=== PATIENT | female | born 1965 | race Caucasian/White ===

== ENCOUNTER 2024-07-24 13:00 | Outpatient (RCR) | payer OTHER, SELFPAY ==
--- NOTE | 2024-07-24 14:06 | OPREHPOC ---
Outpatient Therapy Plan of Care This is a Multidisciplinary Plan of Care that may contain components documented by all disciplines (PT, OT, and ST.) PT Problem 1 PT Problem #1 Knowledge Deficit PT Goal 1 Goal / Goal Update Independent with HEP Target Visit 2 Progress Met PT Problem 2 PT Problem #2 Pain PT Goal 1 Goal / Goal Update Pt to report no more than 4/10 pain in the R knee with activity. Target Visit 12 PT Problem 3 PT Problem #3 Impaired Functional Mobility PT Goal 1 Goal / Goal Update Pt to progress to ambulating without AD. Pt to improve 6MWT distance to 1000ft with good mechanics for efficient community ambulation. Target Visit 12 PT Problem 4 PT Problem #4 Impaired Strength PT Goal 1 Goal / Goal Update Pt to improve R hip flexion strength to 4+/5. Pt to improve R hip flexion strength 4+/5 to be able to get up from a chair and ascend/descend stairs without difficulty. Target Visit 12 PT Problem 5 PT Problem #5 Impaired Range of Motion PT Goal 1 Goal / Goal Update Pt to improve R knee AROM to 0-120. Pt to improve R knee AROM to 0-120 to improve ability to ambulate, rise out of a chair, and navigate stairs. Target Visit 12
--- NOTE | 2024-07-24 14:28 | PTOPEVAL1 ---
Assessment and note entered by Meera Granger, PT Evaluation Information Assessment Status Evaluation Diagnosis R TKA ICD-10 Condition Codes (PT) Aftercare following joint replacement surgery Z47. 1 Onset 07/14/24 Subjective Information Pt reports undergoing R TKA on 07/14/24. States she's been doing some exercises at home since the surgery and is currently ambulating with a wheeled walker at all times. She reports a constant 6 or 7/10 pain in the R knee at all times and increases with activity. She has been using a CPM machine for 1.5 hours per day per her doctor. She sees her doctor via telehealth on the and then in person in August. Reported Pain Level Pain Score 7: Self Report Assessment PT Clinical Summary Mrs. Renee is a 59 year old female presenting to physical therapy for aftercare following R TKA on 07/14/24. She demonstrates impaired knee ROM, weakness, and functional decline leading to difficulty with getting up out of a chair and walking. She will benefit from skilled therapy intervention to address these deficits and return to prior level of function. Plan of Care Interventions Electrical Stimulation,Gait Training,Hot Pack/Cold Pack,Intermittent Compression Pump,Manual Therapy ,Neuro Re-education,Patient/Caregiver Education, Therapeutic Activities,Therapeutic Exercise,Self- Care/Home Management PT Services Indicated Yes Treatment Frequency and 2x/week for 12 visits Duration These treatments will address the objective and functional deficits as defined above. The patient will be advanced safely and appropriately in order for the patient to progress towards his/her prior level of function. Additional exercises will be introduced and as well as a comprehensive home exercise program upon discharge, if needed, ?to ensure carryover of functional gains achieved in the clinic. This treatment plan has been reviewed and agreement upon by the patient.
--- NOTE | 2024-08-17 16:35 | PCPTNOTE ---
I reviewed the License Pending Therapist's documentation and agree with the findings.
--- NOTE | 2024-09-08 13:48 | PTOPDC ---
Assessment and note entered by Katelynn Foster DPT Evaluation Information Assessment Status Discharge Diagnosis R TKA ICD-10 Condition Codes (PT) Aftercare following joint replacement surgery Z47. 1 Onset 07/14/24 Subjective Information Patient reports she has been released by for treatment of the R knee. She reports she has R hip bursitis and has a new order to treat hip. She reports the R knee is feeling good and she has been able to return to all prior activities. She reports compliance with HEP Reported Pain Level Pain Score 6,0: Self Report Assessment PT Clinical Summary Mrs. Renee attended 10 visit fo skilled PT s/p R TKA and made great progress. She has been able to return to all daily activities with use of R knee and is now limited by R hip. She met all goals and is compliance with HEP. She will be discharged at this time. Plan of Care PT Services Indicated Yes
== END 2024-09-08 14:14 | disposition home or self-care (01) ==
LOC: CHSPT 13:00
PROVIDERS: Visit Provider Orthopaedic Surgery
DX: Z96.651 Presence of right artificial knee joint (principal); Z47.1 Aftercare following joint replacement surgery
CPT/HCPCS: 97110; 97161; 97530

== ENCOUNTER 2024-07-28 15:03 | Outpatient (CLI) | payer OTHER, SELFPAY ==
--- NOTE | ~2024-07-28 | US_ITS ---
EXAMINATION: US venous doppler LE RT DATE: 07/28/2024 15:27 INDICATION: Right knee swelling TECHNIQUE: Grayscale ultrasound images without and with compression and Doppler ultrasound images of the right lower extremity veins were obtained. COMPARISON: None. FINDINGS: Noncompressible deep venous thrombosis in the paired right peroneal veins at the calf. The visualized portions of right common femoral vein, profunda (deep) femoral vein, femoral vein, popliteal vein, p osterior tibial veins, gastrocnemius vein and greater saphenous vein outflow are patent. IMPRESSION: 1. Iahvl-[id number]-vrdg deep venous thrombosis in the paired right peroneal veins. Reviewed, dictated and finalized at location A. ACE PUNCHER IMPRESSION: 1. Tsafo-amx-iugn deep venous thrombosis in the paired right peroneal veins.
--- OUTSIDE RECORDS SUMMARY | 2024-07-28 15:35 | XMS_ITS | Encounter Summary ---
Author Organization [facility] Healthcare Address [address] [place] [address] Care Team Providers Care End Packer Name Role Phone Jason Garber MD Primary Care Provider + [phone] Nathalie Munroe PT Unavailable Unavaila ble Raffi Mahan MD Unavailable [phone] Encounter Details Date Type Department Care Team (Late st Contact Info) Description 07/28/2024 Telephone [facility] Orthopedics and Sports Medicine [address] [facility] [address] [address] Sola Rashid PA [address] [place] [address] [address] [place] [address] Social History Tobacco Use Types Packs/Day Years Used Date Smoking Tobacco: Former Cigarettes 0.8 20 0 07/01/1981 - 07/01/2001 Smokeless Tobacco: Former Alcohol Use Standard Drinks/Week Comments Yes 0 (1 standard drink = 0.6 oz pur e alcohol) Occasionally Humiliation, Afraid, Rape, and Kick questionnair e Answer Date Recorded Within the last year, have y ou been afraid of your partner or ex-partner? No 10/15/2022 Within the last year, have y ou been humiliated or emotionally abused in other ways by your partner or ex-partner? No Within the last year, have y ou been kicked, hit, slapped, or otherwise physically hurt by your partner or ex-partner? No 10/15/2022 Within the last year, have y ou been raped or forced to have any kind of sexual activity by your partner or ex-partner? No 10/15/2022 Social Connection and Isolation Panel [NHANES] A nswer Date Recorded In a typical week, how many times do you talk on the phone with family, friends, or neighbors? Once a week 10/16/19 How often do you get togethe r with friends or relatives? Once a week 10/15/2022 How often do you attend chur ch or quaker services? 1 to 4 times per year 10/15/2022 Do you belong to any clubs o r organizations such as christian groups, unions, fraternal or athletic groups, or school groups? No 10/15/2022 How often do you attend meet ings of the clubs or organizations you belong to? Never 10/15/2022 Are you , , di vorced, , never , or living with a partner? 10/15/2022 AUDIT-C Answer Date Recorded Q1: How often do you have a drink containing alc ohol? Monthly or less 07/14/2024 Q2: How many drinks containi ng alcohol do you have on a typical day when you are drinking? 1 or 2 07/14/2024 Q3: How often do you have si x or more drinks on one occasion? Less than monthly 07/14/2024 Overall Financial Resource Strain (CARDIA) Answe r Date Recorded How hard is it for you to pa y for the very basics like food, housing, medical care, and heating? Not very hard 10/15/2022 PHQ-2 Answer Date Recorded PHQ-2 Total Score (If total score is 3 or more points, staff should administer the PHQ-9) 0 07/14/2024 [facility] of Occupat ional Health - Occupational Stress Questionnaire Answer Date Recorded Do you feel stress - tense, restless, nervous, or anxious, or unable to sleep at night because your mind is troubled all the time - these days? Rather much 10/15/2022 Exercise Vital Sign Answer Date Recorde d On average, how many days pe r week do you engage in moderate to strenuous exercise (like a brisk walk)? 3 days 10/15/2022 On average, how many minutes do you engage in exercise at this level? 30 min 10/15/2022 Hunger Vital Sign Answer Date Recorded Within the past 12 months, y ou worried that your food would run out before you got the money to buy more. Never true 10/16/19 23 Within the past 12 months, t he food you bought just didn't last and you didn't have money to get more. Never true 10/15/2022 PRAPARE - Transportation Answer Date Re corded In the past 12 months, has l ack of transportation kept you from medical appointments or from getting medications? No 09/29 In the past 12 months, has l ack of transportation kept you from meetings, work, or from getting things needed for daily living? No 10/15/2022 Housing Stability Vital Sign Answer Phillip e Recorded In the last 12 months, was t here a time when you were not able to pay the mortgage or rent on time? No 10/15/2022 In the last 12 months, how many places have you lived? 1 10/15/2022 In the last 12 months, was t here a time when you did not have a steady place to sleep or slept in a [place] health care facility (including now)? No 10/15/2022 Personal Safety Answer Date Recorded Have you ever been in or are you currently in a harmful physical or emotional relationship or is someone making you feel afraid or unsafe? 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 I was told to let the pt know she can head to [facility] and they will work her in. Pt informed and order faxed. OGRAPHY SUPERVISOR * Telephone Encounter - Sola Rashid PA - 07/28/2024 1:05 PM MAMMOGRAPHY SUPERVISOR Will you please order a stat doppler on right lower extremity for patient at [facility] today if possible? She is s/p right total knee arthroplasty 2 weeks ago. OGRAPHY SUPERVISOR documented in this encounter Plan of Treatment Not on file documented as of this encounter Visit Diagnoses Not on filedocumented in this encounter Care Teams End Packer Relationship Specialty Start Date End Date Jason Garber MD [address] [place] [address] PCP - General 09/28/16 Nathalie Munroe, PT Physical Therapist Physical Therapy 11/09/21 Raffi Mahan MD [address] [facility] [address] [place] [address] Surgeon Orthopedic Surgery 02/20/22 documented as of this encounter
--- OUTSIDE RECORDS SUMMARY | 2024-07-28 15:35 | XMS_ITS | Encounter Summary ---
Author Organization [facility] Healthcare Address [address] [place] [address] Care Team Providers Care Streetcar Conductor Name Role Phone Jason Garber MD Primary Care Provider + [phone] Nathalie Munroe PT Unavailable Unavaila Raffi Quiles MD Unavailable [phone] Reason for Referral * Diagnostic Imaging (Routine) - Pending Review Specialty Diagnoses / Procedures Referred By Contac t Referred To Contact Diagnoses Swelling of right knee joint S/P TKR (total knee replacement), right Procedures US VEIN DUPLEX LOWER EXTREMITY RIGHT LIMITED, UNILATERAL Sola Rashid PA [address] [place] [address] [address] [place] [address] Phone: tel: fax: External Order Referral ID Status Reason Start Date Expiration Date V isits Requested Visits Authorized [id number] Pending Review 07/28/2024 08/27/2025 1 1 D SPLATTER ANALYST Encounter Details Date Type Department Care Team (Late st Contact Info) Description 07/28/2024 Orders Only [facility] Orthopedics and Sports Medicine [address] [facility] [address] [place] [id number] Sola Rashid PA [address] [facility] [address] [place] [address] Swelling of right knee joint (Primary Dx); S/P TKR (total knee replacement), right Social History Tobacco Use Types Packs/Day Years [...] 10/15/2022 How often do you attend chur or tenriism services? 1 to 4 times per year 10/15/2022 Do you belong to any clubs o r organizations such as jewish groups, unions, fraternal or athletic groups, or [...] staff should administer the PHQ-9) 0 07/14/2024 [facility] - Occupational Stress Questionnaire Answer Date Recorded [...] place to sleep or slept in a halfway (including now)? No 10/15/2022 Personal Safety Answer Date Recorded Have you ever been in or are you currently in a harmful physical or emotional relationship or is someone making you feel afraid or unsafe? 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 Not on file Not on file documented as of this encounter Plan of Treatment Scheduled Orders Name Type Priority Associated Diagnoses Orde r Schedule US VEIN DUPLEX LOWER EXTREMITY RIGHT LIMITED, UNILATERAL Imaging Schedule ROBERT, Read ROBERT (Appt Today, Awaiting Results) Swelling of right knee joint S/P TKR (total knee replacement), right Expected: 07/28/2024, Expires: 07/28/2025 documented as of this encounter Visit Diagnoses Diagnosis Swelling of right knee joint- Primary Effusion of lower leg joint S/P TKR (total knee replacement), right documented in this encounter Care Teams Streetcar Conductor Relationship Specialty Start Date End Date Jason Garber MD [address] [place] [address] PCP - General 09/28/16 Nathalie Munroe, PT Physical Therapist Physical Therapy 11/09/21 Raffi Mahan MD [address] [facility] [address] Surgeon Orthopedic Surgery 02/20/22 documented as of this encounter
--- OUTSIDE RECORDS SUMMARY | 2024-07-28 15:35 | XMS_ITS | Encounter Summary ---
Author Organization [facility] Healthcare Address [address] [place] [address] Care Team Providers Care Conference Planner Name Role Phone Jason Garber MD Primary Care Provider + [phone] Nathalie Munroe PT Unavailable Unavaila Raffi Quiles MD Unavailable [phone] Encounter Details Date Type Department Care Team (Late st Contact Info) Description 07/23/2024 Orders Only [facility] Orthopedics and Sports Medicine [address] [place] [address] [address] [place] [address] John Jnoes PA [address] [place] [address] [address] [place] [address] Social History Tobacco Use Types Packs/Day Years [...] often do you attend chur ch or jain services? 1 to 4 times per year 10/15/2022 Do you belong to any clubs o r organizations such as temple groups, unions, fraternal or athletic groups, or [...] staff should administer the PHQ-9) 0 07/14/2024 [facility] of Occupat ional Health - Occupational Stress [...] place to sleep or slept in a prison (including now)? No 10/15/2022 Personal Safety Answer Date Recorded Have you ever been in or are you currently in a harmful physical or emotional relationship or is someone making you feel afraid or unsafe? 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 Not on file Not on file documented as of this encounter Ordered Prescriptions Prescription Sig Dispense Quantity Refills Last Filled Start Date End Date HYDROcodone-acetam inophen (NORCO) 5-325 mg per tabletIndications: Pain Take 1-2 tablets by mouth every 4 (four) hours as needed for pain 56 tablet 07/23/2024 documented in this encounter Plan of Treatment Not on file documented as of this encounter Visit Diagnoses Not on filedocumented in this encounter Discontinued Medications Medication Sig Discontinue Reason Start Date End Da te HYDROcodone-acetaminophe n (NORCO) 5-325 mg per tabletIndications:Pain Take 1-2 tablets by mouth every 4 (four) hours as needed for pain Reorder 07/15/2024 07/23/2024 documented as of this encounter Care Teams Conference Planner Relationship Specialty Start Date End Date Jason Garber MD [address] [place] [address] PCP - General 09/28/16 Nathalie Munroe, PT Physical Therapist Physical Therapy 11/09/21 Raffi Mahan MD [address] [facility] [address] Surgeon Orthopedic Surgery 02/20/22 documented as of this encounter
--- OUTSIDE RECORDS SUMMARY | 2024-07-28 15:35 | XMS_ITS | Encounter Summary ---
Author Organization [facility] Healthcare Address [address] [place] [address] Care Team Providers Care Implementation Advisor Name Role Phone Jason Garber MD Primary Care Provider + [phone] Nathalie Munroe PT Unavailable Unavaila ble Raffi Mahan MD Unavailable [phone] Encounter Details Date Type Department Care Team (Late st Contact Info) Description 07/28/2024 1:00 PM RIBBON SWEATBAND OPERATOR Telemedicine [facility] Group Orthopedics and Sports Medicine [address] [facility] [address] [place] [address] Sola Rashid PA [address] [place] [address] [address] [place] [address] S/P TKR (total knee replacement), right (Primary Dx); Orthopedic aftercare; Pain and swelling of right lower extremity Social History Tobacco Use Types Packs/Day Years [...] often do you attend chur ch or religion services? 1 to 4 times per year 10/15/2022 Do you belong to any clubs o r organizations such as buddhism groups, unions, fraternal or athletic groups, or [...] staff should administer the PHQ-9) 0 07/14/2024 [facility] of Occupat ional Health - Occupational Stress [...] place to sleep or slept in a assisted (including now)? No 10/15/2022 Personal Safety Answer Date Recorded Have you ever been in or are you currently in a harmful physical or emotional relationship or is someone making you feel afraid or unsafe? 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 Not on file Not on file documented as of this encounter Ordered Prescriptions Prescription Sig Dispense Quantity Refills Last Filled Start Date End Date oxyCODONE-acetamin ophen (PERCOCET) 5-325 mg per tabletIndications: Pain Take 1-2 tablets by mouth every 4 (four) hours as needed for pain 60 tablet 07/28/2024 cyclobenzaprine (FLEXERIL) 10 mg tablet Take 1 tablet (10 mg total) by mouth 3 (three) times a day as needed for muscle spasms for muscle spasms 30 tablet 1 07/28/2024 documented in this encounter Progress Notes * Sola Rashid PA - 07/28/2024 1:00 PM CST DOS: 07/14/24 Procedure:right total knee arthroplasty Pain control: How would you rate your pain: 01/07 What are you currently taking for pain: hydrocodone; not controlled with hydrocodone How many tabs: 2 How often: every 4 hours Are you in need of a refill: No Are you having any constipation related to taking pain medication: much improved and resolved now Do you have any NEW or other post operative sensations in your extremity for example numbness or tingling: No Incision check: Are there any concerns with the incision (redness, bleeding, drainage): No (If yes, send picture) Is there any excessive swelling in the lower leg or tenderness to the calf when touched: Yes . Willorder stat doppler [facility] Does the swelling in the lower leg fluctuate with activity: No Therapy check (TKA only): [facility]PD[facility]if PT is outside of [facility] facility)-once scanned, please send via medial inspection manager to the provider who will be performing 8 week visit Are you doing a home exercise program: Yes Have you started outpatient physical therapy: Yes If patient notes/mentions any barriers to physical therapy (cost of copay, transportation, etc.), please make note of what these are: n/a For total knee patients: Are you able to completely straighten the operative leg: Yes How far are you able to bend her knee back: unsure Are you able to sit in a chair normally: Yes Are you still using a walker/cane: Yes *If they have Home Health PT for first 2 weeks, make sure order for outpatient PT is placed. Medication check: *Confirm if they are still taking anticoagulant: (Aspirin, Eliquis, ect.) (4 weeks in TKA, 2 weeks in RTSA/TSA) Do you have any questions about any other medications: refill on cyclobenzaprine Review that the vitamin-C and vitamin-D and iron are prescribed for 30 days Any questions about any other medications: No Misc: Are you using compression stockings: Yes *Reminder, these are recommended for 4 weeks postoperatively for a total knee in 2 weeks postoperatively for a total shoulder. You will see a PA at your 8 week post op and we will also get an xray at that appointment ON SWEATBAND OPERATOR documented in this encounter Plan of Treatment Not on file documented as of this encounter Visit Diagnoses Diagnosis S/P TKR (total knee replacement), right- Primary Orthopedic aftercare Unspecified orthopedic aftercare Pain and swelling of right lower extremity documented in this encounter Discontinued Medications Medication Sig Discontinue Reason Start Date End Da te cyclobenzaprine (FLEXERIL) 10 mg tabletIndications:S/P spinal fusion Take 1 tablet (10 mg total) by mouth 3 (three) times a day as needed for muscle spasms for muscle spasms Reorder 07/03/2024 07/28/2024 documented as of this encounter Care Teams Implementation Advisor Relationship Specialty Start Date End Date Jason Garber MD [address] [place] [address] PCP - General 09/28/16 Nathalie Munroe, PT Physical Therapist Physical Therapy 11/09/21 Raffi Mahan MD [address] [facility] [address] [place] [address] Surgeon Orthopedic Surgery 02/20/22 documented as of this encounter
--- OUTSIDE RECORDS SUMMARY | 2024-07-28 15:36 | XMS_ITS | Encounter Summary ---
Author Organization [facility] Healthcare Address [address] [place] [address] Care Team Providers Care Exchange Consultant Name Role Phone Jason Garber MD Primary Care Provider [phone] Nathalie Munroe PT Unavailable Unavaila ble Raffi Mahan MD Unavailable [phone] Encounter Details Date Type Department Care Team (Late st Contact Info) Description 02/24/2024 Documentation Internal Medicine Geovany Díaz BS Social History Tobacco Use Types Packs/Day Years [...] you have a drink containing alc ohol? 2-4 times a month 02/20/2023 Q2: How many drinks containi ng alcohol do you have on a typical day when you are drinking? 3 or 4 02/20/2023 Q3: How often do you have si x or more drinks on one occasion? Less than monthly 02/20/2023 Overall Financial Resource Strain (CARDIA) Answe r Date Recorded How hard is it for you to pa y for the very basics like food, housing, medical care, and heating? Not very hard 10/15/2022 PHQ-2 Answer Date Recorded PHQ-2 Total Score (If total score is 3 or more points, staff should administer the PHQ-9) 1 01/28/2024 [facility] - Occupational Stress Questionnaire Answer Date Recorded [...] place to sleep or slept in a care home (including now)? No 10/15/2022 Personal Safety Answer Date Recorded Getting School Help Needed Not on file 06/11 Comments No Sex and Gender Information Value Date Recorded Sex Assigned at Not on file Legal Sex Female 11:31 AM WORK COUNSELOR Gender Identity Not on file Sexual Orientation Not on file Occupation Industry Job Start Date Job End Date [employer] Not on file Not on file Not on file documented as of this encounter Plan of Treatment Not on file documented as of this encounter Visit Diagnoses Not on filedocumented in this encounter Care Teams Exchange Consultant Relationship Specialty Start Date End Date Jason Garber MD [address] [place] [address] PCP - General 09/28/16 Nathalie Munroe, PT Physical Therapist Physical Therapy 11/09/21 Raffi Mahan MD [address] [facility] [place] [place] [address] Surgeon Orthopedic Surgery 02/20/22 documented as of this encounter
--- OUTSIDE RECORDS SUMMARY | 2024-07-28 15:36 | XMS_ITS | Clinical Summary ---
Author Organization [facility] Address [address] [place] [address] Care Team Providers Care Press Leader Name Role Phone Jason Garber MD Primary Care Provider [phone] Nathalie Munroe PT Unavailable Unavaila ble Raffi Mahan MD Unavailable [phone] Allergies No known active allergies Medications albuterol HFA (PROVENTIL HFA,VENTOLIN HFA,PROAIR HFA) 90 mcg/actuation inhalerIndicati ons:Bronchitis TAKE 2 PUFFS BY MOUTH EVERY 4 HOURS NEEDED FOR WHEEZE 8.5 each 1 023 Active telmisartan (MICARDIS) 40 mg tablet Take 1 tablet (40 mg total) by mouth daily 90 tablet 3 023 Active ergocalciferol (VITAMIN D) 50,000 unit capsule TAKE 1 CAPSULE BY MOUTH ONE TIME PER WEEK 4 capsule 5 024 Active hydroCHLOROthia zide (HYDRODIURIL) 25 mg tablet TAKE 1 TABLET (25 MG TOTAL) BY MOUTH DAILY. 30 tablet 6 024 Active acetaminophen (TYLENOL) 500 mg tablet TAKE 2 TABLETS (1,000 MG TOTAL) BY MOUTH EVERY 6 HOURS NEEDED FOR PAIN 120 tablet 024 Active metoprolol XL (TOPROL-XL) 25 mg extended release tabletIndicatio ns:Hypertension , essential TAKE 1 TABLET (25 MG TOTAL) BY MOUTH DAILY. 100 tablet 1 024 Active atorvastatin (LIPITOR) 20 mg tablet TAKE 1 TABLET BY MOUTH EVERY DAY 100 tablet 1 024 Active levothyroxine (SYNTHROID) 100 mcg tabletIndicatio ns:Hypothyroidi sm, unspecified type TAKE 1 TABLET BY MOUTH EVERY DAY 100 tablet 1 024 Active citalopram (CeleXA) 40 mg tabletIndicatio ns:Anxiety TAKE 1 TABLET BY MOUTH EVERY DAY 100 tablet 024 Active busPIRone (BUSPAR) 5 mg tablet TAKE 1 TABLET BY MOUTH THREE TIMES A DAY 90 tablet 11 024 Active ondansetron (ZOFRAN) 4 mg tablet TAKE 1 TABLET BY MOUTH EVERY 8 HOURS NEEDED FOR NAUSEA AND VOMITING 9 tablet 2 024 Active oxyBUTYnin XL (DITROPAN-XL) 5 mg 24 hr tabletIndicatio ns:Urinary incontinence, mixed TAKE 1 TABLET (5 MG TOTAL) BY MOUTH DAILY. 90 tablet 1 024 Active meloxicam (MOBIC) 15 mg tabletIndicatio ns:Left hip pain,Right hip pain,Greater trochanteric pain syndrome of both lower extremities,Tro chanteric bursitis of left hip,Tendinopath y of left gluteal region,Tendinop athy of right gluteus medius Take 1 tablet (15 mg total) by mouth daily 30 tablet 3 024 Active gabapentin (NEURONTIN) 300 mg capsuleIndicati ons:S/P spinal fusion TAKE 1 CAPSULE BY MOUTH TWICE A DAY 180 capsule 3 Active ascorbic acid (VITAMIN C) 500 mg tablet,chewable Take 1 tablet/chew tab (500 mg total) by mouth 2 (two) times a day 60 tablet/chew tab 025 2024 Active aspirin 81 mg enteric coated tablet Take 1 tablet (81 mg total) by mouth 2 (two) times a day 60 tablet 025 2024 Active ferrous sulfate 325 mg (65 mg of elemental iron) tabletIndicatio ns:Iron Deficiency Anemia Take 1 tablet (325 mg total) by mouth daily with breakfast 30 tablet 025 2024 Active senna-docusate (PERICOLACE) 8.6-50 mg Take 1-2 tablets daily prn for constipation 30 tablet 025 Active HYDROcodone-frieda taminophen (NORCO) 5-325 mg per tabletIndicatio ns:Pain Take 1-2 tablets by mouth every 4 (four) hours as needed for pain 56 tablet 025 Active buPROPion SR (WELLBUTRIN SR) 200 mg 12 hr tabletIndicatio ns:Anxiety TAKE 1 TABLET BY MOUTH EVERY DAY 90 tablet 1 025 Active cyclobenzaprine (FLEXERIL) 10 mg tablet Take 1 tablet (10 mg total) by mouth 3 (three) times a day as needed for muscle spasms for muscle spasms 30 tablet 1 025 Active oxyCODONE-aceta minophen (PERCOCET) 5-325 mg per tabletIndicatio ns:Pain Take 1-2 tablets by mouth every 4 (four) hours as needed for pain 60 tablet 025 Active busPIRone (BUSPAR) 5 mg tablet TAKE 1 TABLET BY MOUTH THREE TIMES A DAY 90 tablet 11 023 2023 Discontinued oxyBUTYnin XL (DITROPAN-XL) 5 mg 24 hr tabletIndicatio ns:Urinary incontinence, mixed TAKE 1 TABLET (5 MG TOTAL) BY MOUTH DAILY. 90 tablet 1 024 2023 Discontinued cyclobenzaprine (FLEXERIL) 10 mg tabletIndicatio ns:S/P spinal fusion Take 1 tablet (10 mg total) by mouth 3 (three) times a day as needed for muscle spasms for muscle spasms 30 tablet 1 024 2024 Discontinued(R eorder) gabapentin (NEURONTIN) 300 mg capsuleIndicati ons:S/P spinal fusion TAKE 1 CAPSULE BY MOUTH TWICE A DAY 180 capsule 3 024 2024 Discontinued(R eorder) buPROPion SR (WELLBUTRIN SR) 200 mg 12 hr tabletIndicatio ns:Anxiety TAKE 1 TABLET BY MOUTH EVERY DAY 30 tablet 5 024 2024 Discontinued ondansetron (ZOFRAN) 4 mg tablet Take 1 tablet (4 mg total) by mouth every 6 (six) hours 12 tablet 024 2024 Discontinued(T herapy completed) meloxicam (MOBIC) 15 mg tabletIndicatio ns:Left hip pain,Right hip pain,Greater trochanteric pain syndrome of both lower extremities,Tro chanteric bursitis of left hip,Tendinopath y of left gluteal region,Tendinop athy of right gluteus medius TAKE 1 TABLET BY MOUTH EVERY DAY WITH FOOD 30 tablet 024 2023 Discontinued(R eorder) semaglutide (Wegovy) 2.4 mg/0.75 mL auto-injector INJECT 0.75 ML (2.4 MG TOTAL) UNDER THE SKIN EVERY 7 DAYS 3 mL 2 024 2024 Discontinued(T herapy completed) ondansetron (ZOFRAN) 4 mg tablet Take 1 tablet (4 mg total) by mouth every 8 (eight) hours as needed for nausea or vomiting 20 tablet 024 2023 Discontinued Klor-Con M20 20 mEq CR tablet TAKE 1 TABLET BY MOUTH TWICE A DAY FOR 7 DAYS, THEN 1 TAB DAILY 37 tablet 2 024 2024 Discontinued(T herapy completed) cyclobenzaprine (FLEXERIL) 10 mg tabletIndicatio ns:S/P spinal fusion Take 1 tablet (10 mg total) by mouth 3 (three) times a day as needed for muscle spasms for muscle spasms 30 tablet 1 025 2024 Discontinued(R eorder) HYDROcodone-frieda taminophen (NORCO) 5-325 mg per tabletIndicatio ns:Pain Take 1-2 tablets by mouth every 4 (four) hours as needed for pain 56 tablet 025 2024 Discontinued(R eorder) Active Problems Problem Noted Date Diagnosed Date S/P TKR (total knee replacement), right 07/14/19 25 Primary osteoarthritis of right knee 07/05/2024 Hypokalemia 01/28/2024 Assessment & Plan (01/28/2024 10:21 AM CDT): Instructed to avoid intermittent fasting. Patient with diarrhea occurring intermittently for the past few weeks, increased in the past last 1 week. K=3.0. Will start kcl 10 meq daily and repeat labs in 2-4 weeks. Hypertension, essential 01/28/2024 Assessment & Plan (07/03/2024 10:56 AM POLITICAL AIDE): Blood pressure is very well controlled. Continue present management telmisartan, metoprolol and hydrochlorothiazide. Assessment & Plan (01/28/2024 10:36 AM CDT): Blood pressure is well controlled, continue present management with telmisartan 40 mg daily, hydrochlorothiazide 25 mg daily and metoprolol. Dizziness 01/28/2024 Assessment & Plan (01/28/2024 10:34 AM CDT): Lengthy discussion regarding dizziness as a result electrolyte disturbance hypoglycemia. Patient has been following intermittent fasting diet, walking out in the heat without eating. Symptoms of dizziness have occurred during her walks in the heat. Blood sugar today 70 in office. Explained to patient that she needs to eat several small meals frequently throughout the day. Will continue to monitor. If symptoms persist despite returning to normal diet can order Holter monitor. Essential tremor 11/22/2023 Assessment & Plan (11/22/2023 11:52 AM CDT): No evidence of tremor on exam. Patent report occasional hand tremor with intentional movement/activity. No tremor at rest, no head tremor, speech disturbance or change in gait. Bilateral hip pain 11/22/2023 Assessment & Plan (11/22/2023 12:02 PM CDT): Reviewed xray 2019 with moderate degenerative change and bone spurring noted on left hip. Patient has increased pain in bilateral hips, pain is not new but does not seem to have improved much following physical therapy. Check x-rays, further evaluation with ortho. May also benefit from injections. Weakness of both lower extremities 03/07/2023 Assessment & Plan (07/04/2023 12:25 PM POLITICAL AIDE): Improvement in gait and strength with physical therapy. Some increase in hip pain with exercises, discussed p.r.n. use of ibuprofen. Will continue to monitor. Assessment & Plan (03/07/2023 10:35 AM CDT): Encourage physical therapy, patient is agreeable. Referral placed today for physical therapy eval/treatment. S/P spinal fusion 02/19/2022 Assessment & Plan (07/03/2024 10:55 AM POLITICAL AIDE): Continues sparing use of gabapentin and Flexeril. Pain stable. Assessment & Plan (11/22/2023 11:54 AM CDT): Reviewed last eval with ortho spine, low back pain likely due to degenerative changes below fusion site. Patient was not a candidate to extend fusion to sacrum/ilium as her BMI is too high. Overall pain is unchanged and stable. No bowel or bladder disturbance or perianal numbness. Encouraged her to continue to work towards weight loss as well as continued home exercise program and exercises with physical therapy. Assessment & Plan (07/04/2023 12:25 PM POLITICAL AIDE): Patient is benefitting from physical therapy exercises, continues exercises at home as well. Would not be considered surgical candidate until BMI is less than 35, working hard towards weight loss. Assessment & Plan (03/07/2023 10:36 AM CDT): Encouraged gradual increase of activity. Start with walking 30 minutes daily. Gentle exercise twice weekly. CKD (chronic kidney disease) stage 3, GFR 30-59 ml/min 02/15/2022 Chronic, continuous use of opioids 02/15/2022 History of anemia 02/15/2022 Asthma 02/15/2022 History of PSVT (paroxysmal supraventricular tac hycardia) 02/15/2022 Closed fracture of first lum bar vertebra with delayed healing 01/31/2022 Overview (01/31/2022): Added automatically from request for surgery [id number] Pain, lumbar region 01/31/2022 Overview (01/31/2022): Added automatically from request for surgery [id number] Lumbar radiculopathy 01/31/2022 Overview (01/31/2022): Added automatically from request for surgery [id number] Spinal stenosis of lumbar region 01/31/2022 Overview (01/31/2022): Added automatically from request for surgery [id number] Class 2 obesity in adult 10/03/2021 Assessment & Plan (07/03/2024 10:57 AM POLITICAL AIDE): No longer taking Wegovy, we has been maintained. Continues working towards weight loss. Hopeful to increase walking following knee replacement. Assessment & Plan (01/28/2024 10:36 AM CDT): Discussed the importance of eating several small meals frequently throughout the day, avoid fasting. Discussed hypoglycemia with use of Wegovy. Will continue to monitor closely. Assessment & Plan (07/04/2023 12:24 PM POLITICAL AIDE): Doing very well with wegovy. Denies any medication side effects. Weight is down 20 lbs since 03/2023. Patient is watching diet closely and trying to increase exercise with walking. Continues working with PT. Reports some improvement in back pain. Assessment & Plan (10/03/2021 11:16 AM CDT): Limited exercise at current time d/t pain from lumbar compression fracture. Reviewed need to lose weight, reviewed health benefits. Reviewed recommendations for daily intake & activity 20-30 minutes/day. Discussed healthy diet and importance of regular physical activity. Electronic cigarette use 10/03/2021 Assessment & Plan (10/03/2021 11:17 AM CDT): Uses nicotine in e-cigarette. Precontemplative. Encouraged complete smoking cessation. Discussed different types of medications & [id number] aides to help with cessation. Closed compression fracture of body of L1 verteb ra 09/19/2021 Assessment & Plan (10/04/2021 7:38 PM CDT): Never received lidocaine patches from the ER. Resent the patches to her pharmacy. Reviewed that she should apply for 12 hours and remove for 12 hours. Using hydrocodone for more severe pain. Consistently using heating pad. Discussed PT as she continues to improve. Declined at this time but relates that she will call back in several weeks to get set up. Reviewed red flags. Assessment & Plan (09/19/2021 2:16 PM CDT): Sent home w/lidocaine 5% patch q12hr, naproxen 500mg bid, tylenol 1000mg tid prn & oxycodone 5mg tid prn. To machine pecan picker lidocaine patch. Aware to apply x12hrs & remove for 12 hrs. To use naproxen & tylenol for pain & oxycodone for more severe pain. [facility] ER paperwork given information for: Dr Wagner Maldonado (orthopedic surgery) at [facility] [phone]. Referral sent to Dr Mahan at [facility]: contact info given. Will call their office tomorrow. Urinary incontinence, mixed 09/19/2021 Assessment & Plan (09/19/2021 2:09 PM CDT): Oxybutynin daily refilled. Hypertension 08/10/2021 Hand pain, left 10/07/2020 Assessment & Plan (10/07/2020 8:41 AM CDT): L hand xr ordered. Will contact w/results once rec'd. Discussed referral to ortho pending results. Discussed icing to dorsum of L hand into wrist. Acute wrist pain, left 10/07/2020 Assessment & Plan (10/07/2020 8:41 AM CDT): L wrist xr ordered. Will contact w/results once rec'd. Discussed referral to ortho pending results. Discussed icing to dorsum of L hand into wrist. Primary osteoarthritis of both knees 08/09/2020 Assessment & Plan (07/03/2024 10:55 AM POLITICAL AIDE): Plans to have arthroscopy right knee with Dr. Multani on 07/14. No contraindications to upcoming surgery. Assessment & Plan (11/22/2023 11:57 AM CDT): Previous good response to injections with ortho, plans to schedule follow up. Again discussed benefits of weight loss. Mixed hyperlipidemia 07/26/2020 Assessment & Plan (07/03/2024 10:56 AM POLITICAL AIDE): Doing well with atorvastatin 20 mg daily, no changes made today. Assessment & Plan (07/04/2023 12:23 PM POLITICAL AIDE): Labs ordered today, continue atorvastatin 20 mg daily. Assessment & Plan (03/07/2023 10:43 AM CDT): Continues atorvastatin, fasting labs ordered today. Will continue to monitor Assessment & Plan (07/27/2020 8:11 PM POLITICAL AIDE): 07/26/20 BG=858 HDL=56 LT=758 NOF=979 TC/HDL=4.1 Copy of results given to Eunice De La Cruz. Reviewed results at time of appointment. Acute pain of left knee 07/26/2020 Assessment & Plan (07/27/2020 8:09 PM POLITICAL AIDE): Referral to [facility] for further eval. To continue NSAIDs & icing. Discussed bracing if needed d/t lateral laxity. Contact info for [facility] given to Mrs De La Cruz. SVT (supraventricular tachycardia) 06/27/2020 Major depressive disorder in partial remission 1 08/28/2019 Varicose veins of lower extremity with pain, rig ht 05/16/2018 Overview (05/16/2018): Added automatically from request for surgery [id number] Varicose veins of lower extr emities with complications, right 05/16/2018 Overview (05/16/2018): Added automatically from request for surgery [id number] Family hx of colon cancer 01/23/2018 Overview (01/23/2018): Added automatically from request for surgery [id number] Morbid obesity with BMI of 40.0-44.9, adult /03/2018 Assessment & Plan (11/22/2023 12:04 PM CDT): Encouraged patient to engage with a more formal weight loss program such as weight watchers as she would benefit from having additional support. Continue Wegovy weekly injections. Not a candidate for stimulant medication. Assessment & Plan (03/07/2023 10:37 AM CDT): Patient is motivated for weight loss. She is not seeing any improvement with use of Trulicity. Previously prescribed Wegovy, however medication was not available. Would like to try Wegovy again at this time, refilled. Discontinue Trulicity. Today we reviewed TDEE encouraged patient to use fitness tracking luis better understand current dietary habits. Stressed the need for overall high-protein and lower carb (see patient instructions). Assessment & Plan (07/26/2020 1:23 PM POLITICAL AIDE): Has lost 17# since 06/27/20 appt. Reviewed need to lose weight, reviewed health benefits. Reviewed recommendations for daily intake & activity 20-30 minutes/day. Discussed healthy diet and importance of regular physical activity. Anxiety 08/12/2015 Overview (10/04/2016): Anxiety Assessment & Plan (07/03/2024 10:57 AM POLITICAL AIDE): Reports moods are stable. No changes made today. Continue citalopram, bupropion and buspirone Assessment & Plan (11/22/2023 11:51 AM CDT): Increased stress related to with chronic health conditions and requiring frequent appointments. was on ventilator in Aug. Increased stress likely contributing to weight/inability to lose weight as she is eating/snacking more in the evenings. Recommend we increase buspirone to 10 mg tid 15 mg bid for easier dosing. Continue citalopram and bupropion, will continue to monitor. Assessment & Plan (07/25/2019 4:54 PM POLITICAL AIDE): Info for [facility] intensive OP program givenf or Mrs De La Cruz to give her . Stressed her safety (safe). Hydroxyzine 25mg tid prn anxiety. Reviewed med SE & scheduling. Discussed counseling. Uncertain if she will do that. To rtc/call if hydroxyzine not helpful. Irritable bowel syndrome 05/20/2012 Overview (10/05/2016): IBS (irritable bowel syndrome) Assessment & Plan (01/28/2024 10:33 AM CDT): Continue present management, avoid abrupt dietary changes and fat diets. Hypothyroidism 05/19/2012 Overview (10/05/2016): Hypothyroidism Assessment & Plan (07/03/2024 10:56 AM POLITICAL AIDE): Levothyroxine 100 mcg daily. Will check TSH/T4 and make changes as needed. Lab Results Component Value Date TSH 0.76 01/24/2024 TSH 0.51 03/07/2023 TSH 1.81 10/19/2022 Assessment & Plan (07/04/2023 12:23 PM POLITICAL AIDE): Levothyroxine 100 mcg daily. Will check TSH/T4 and make changes as needed. Lab Results Component Value Date TSH 0.51 03/07/2023 TSH 1.81 10/19/2022 TSH 2.24 06/11/2022 TSH 2.24 06/11/2022 Assessment & Plan (03/07/2023 10:42 AM CDT): Levothyroxine 100 mcg daily. Will check TSH/T4 and make changes as needed. Lab Results Component Value Date TSH 1.81 10/19/2022 TSH 2.24 06/11/2022 TSH 2.24 06/11/2022 Depression 07/01/2003 Overview (10/04/2016): Depression Resolved Problems Problem Noted Date Diagnosed Date Resolved Date Class 2 obesity due to exces s calories without serious comorbidity with body mass index (BMI) of 38.0 to 38.9 in adult 09/19/20212 Assessment & Plan (09/19/2021 2:07 PM CDT): Reviewed need to lose weight, reviewed health benefits. Reviewed recommendations for daily intake & activity 20-30 minutes/day. Discussed healthy diet and importance of regular physical activity. semaglutide 0.25mg SQ injection weekly. Aware that prior auth may be triggered. May/may not be approved. Class 2 obesity due to exces s calories without serious comorbidity with body mass index (BMI) of 37.0 to 37.9 in adult 10/07/2020 Assessment & Plan (10/07/2020 8:34 AM CDT): Reviewed need to lose weight, reviewed health benefits. Reviewed recommendations for daily intake & activity 20-30 minutes/day. Discussed healthy diet and importance of regular physical activity. BMI 35.0-35.9,adult 07/26/2020 10/08/19 21 Assessment & Plan (07/27/2020 8:10 PM POLITICAL AIDE): Has lost 17# since WADE. BMI has dropped nearly 3 points. Reviewed need to lose weight, reviewed health benefits. Reviewed recommendations for daily intake & activity 20-30 minutes/day. Discussed healthy diet and importance of regular physical activity. BMI 37.0-37.9, adult 07/25/2019 021 Assessment & Plan (07/25/2019 4:52 PM POLITICAL AIDE): Reviewed need to lose weight, reviewed health benefits. Reviewed recommendations for daily intake & activity 20-30 minutes/day. Discussed healthy diet and importance of regular physical activity. Tonsillitis 07/24/2019 10/07/2020 Assessment & Plan (07/25/2019 4:49 PM POLITICAL AIDE): augmentin 875/125mg po bid x 10 days sent. Aware to complete entire course of abx. Tylenol or ibuprofen for fever/pain Gargle with warm salt water (1tsp salt/1 cup water) Suck on ice chips, popsicles, cough drops, or throat lozenges May use warm salt water gargles for pain or otc chloraseptic spray. To change toothbrush in 72 hours. Reviewed red flags; to go to ER if any drooling or difficulty breathing. Push fluids, relative rest. Influenza-like symptoms 08/20/201607/02 Overview (10/04/2016): Flu-like symptoms Acute low back pain 08/20/2016 07/25/19 20 Overview (10/04/2016): Acute right-sided low back pain without sciatica Wheezing 08/20/2016 07/25/2019 Overview (10/04/2016): Wheezing Infection of skin 04/24/2016 07/25/2019 Recurrent disease 04/24/2016 07/25/2019 Methicillin susceptible Stap hylococcus aureus infection 04/24/2016 07/25/2019 Fracture of mandible 03/19/2016 020 Abscess of back 03/15/2016 07/25/2019 Obesity with body mass index 30 or greater 08/12/2015 07/25/2019 Overview (10/04/2016): BMI 30+ - obesity Diabetes mellitus 08/02/2014 11/11/2017 Overview (10/04/2016): Diabetes mellitus Type 2 diabetes mellitus 05/31/201409/2023 Overview (10/04/2016): Type 2 diabetes Encounters Date Type Department Care Team Description 07/28/2024 1:00 PM POLITICAL AIDE Telemedicine [facility] Orthopedics and Sports Medicine [address] [place] [address] [address], [place] [address] Sola Rashid PA S/P TKR (total knee replacement), right (Primary Dx); Orthopedic aftercare; Pain and swelling of right lower extremity 07/28/2024 Orders Only [facility] Medicine [address] [place] [address] [address] [place] [address] Sola Rashid PA Swelling of right knee joint (Primary Dx); S/P TKR (total knee replacement), right 07/28/2024 Telephone [facility] [address] [place] [address] [address] [place] [address] Sola Rashid PA 07/23/2024 Telephone [facility] Medicine [address] [place] [address] [address] [place] [address] John Jones PA 07/23/2024 Orders Only [facility] Medical [facility] Orthopedics and Sports Medicine [address] [place] [address] [address], [place] [address] John Jones PA 07/21/2024 Telephone [facility] [address] [place] [address] [address] [place] [address] Suleiman Multani MD 07/20/2024 Telephone [facility] Medicine [address] [place] [address] [address] [place] [address] Suleiman Multani MD Post-Op Call 07/20/2024 [facility] Post Discharge Follow up phone call [address] [address] Trina Jarvis 07/17/2024 [facility] Post Discharge Follow up phone call [address] [address] Trina Jarvis 07/14/2024 2:19 PM POLITICAL AIDE Anesthesia Event [facility] Operating Room [address] [place] [address] Hadley Woodruff MD McDowell, Juri Osmell, MD 07/14/2024 1:30 PM POLITICAL AIDE - 07/14/2024 4:00 PM POLITICAL AIDE Surgery [facility] Operating Room [address] [place] [address] Suleiman Multani MD Right total knee arthroplasty 07/14/2024 10:55 AM POLITICAL AIDE - 07/15/2024 11:35 AM POLITICAL AIDE Hospital Encounter [facility] [address] [place] [address] Suleiman Multani MD S/P TKR (total knee replacement), right (Primary Dx); Primary osteoarthritis of right knee Discharge Disposition: Discharge to home or self care 07/14/2024 Orders Only [facility] Medical Group Orthopedics and Sports Medicine [address] [facility] [facility] [address] [place] [address] Suleiman Multani MD Primary osteoarthritis of right knee (Primary Dx) 07/03/2024 10:36 AM POLITICAL AIDE - 07/03/2024 11:59 PM POLITICAL AIDE [place] [address] Discharge Disposition: Discharge to home or self care 07/03/2024 10:30 AM POLITICAL AIDE [facility] [address] [id number] Yessi Martin NP Primary osteoarthritis of both knees (Primary Dx); Mixed hyperlipidemia; Hypertension, essential; Acquired hypothyroidism; Anxiety; S/P spinal fusion; Class 2 severe obesity due to excess calories with serious comorbidity and body mass index (BMI) of 37.0 to 37.9 in adult (HCC) 06/30/2024 12:05 PM POLITICAL AIDE Lab [address] [address] Pre-op testing 06/30/2024 12:04 PM POLITICAL AIDE - 06/30/2024 11:59 PM POLITICAL AIDE Hospital Encounter [facility] Cardiology [address] [place] [address] Pre-op testing Discharge Disposition: Discharge to home or self care 06/30/2024 12:01 PM POLITICAL AIDE - 06/30/2024 11:59 PM POLITICAL AIDE Hospital Encounter [facility] [address] [place] [address] Pre-op testing Discharge Disposition: Discharge to home or self care 06/29/2024 Orders Only [facility] [address] [id number] Jason Garber MD Left hip pain; Right hip pain; Greater trochanteric pain syndrome of both lower extremities; Trochanteric bursitis of left hip; Tendinopathy of left gluteal region; Tendinopathy of right gluteus medius from Last 3 Months Immunizations Name Administration Dates Next Due Influenza, Quadrivalent, Spl it, Preservative Free, Intramuscular 03/07/2023,04/23/2022,06/27/2020,05/12,04/11/2018,03/08/2017,03/31/2016 Influenza, Trivalent, IM (MDV) 05/18/2014 Influenza, Trivalent, Preser vative Free, Intramuscular 04/27/2024,04/24/2016 Influenza, Unspecified 08/24/2021(Deferr ed: Patient Refused),03/31/2021(Deferred: Patient Refused),03/31/2021(Deferred: Patient Refused),03/01/2021(Deferred: Patient Refused),03/31/2017 Pfizer SARS-CoV-2 Monovalent Vaccination (12+ Yrs) PURPLE 04/23/2022 Pneumococcal Conjugate PCV 13 04/06/2014 Tdap 07/19/2020 ZOSTER Recombinant 04/27/2024,12/20/2023 Surgical History Surgery Date Site/Laterality Comments OTHER SURGICAL HISTORY Levothyroxine 25 mg OTHER SURGICAL HISTORY 07/01/1984 - 06/30/1985 : OTHER SURGICAL HISTORY 07/01/1992 - 06/30/1993 : OTHER SURGICAL HISTORY 07/01/1995 - 06/30/1996 : OTHER SURGICAL HISTORY Irritable bowel disease: diet OTHER SURGICAL HISTORY 07/01/1980 - 06/30/1981 Ovarian cyst: Laparoscopic USO OTHER SURGICAL HISTORY Torn rotator cuff: Right rotator cuff repair ROTATOR CUFF REPAIR Right rotator cuff surgery APPENDECTOMY Appendectomy OTHER SURGICAL HISTORY I&D back abscess OTHER SURGICAL HISTORY Surgical repair of fractured jaw MANDIBLE SURGERY 09/29/2016 - 10/28/2016 COLONOSCOPY 02/28/2018 COLONOSCOPY 07/01/2007 - 06/30/2008 VARICOSE VEIN SURGERY 07/01/2004 - 06/30/2005 Bilateral FRACTURE SURGERY 02/21/2016 SPINAL FUSION 02/19/2022 T11-L3 PSF, posterior column osteotomies at T12-L1 and L1-L2 Medical History Medical History Date Comments Hx Other Medical 1984 ; Outc ome: 40 week 8 lb(s) 8 oz Male Hx Other Medical 1992 ; Outc ome: 40 week 11 lb(s) 4 oz Male Hx Other Medical 1995 ; Outc ome: 39 week 9 lb(s) 8 oz Male Irritable bowel syndrome Irritab le bowel disease; Outcome: improved Cyst of ovary Ovarian cyst Hx Other Medical Torn rotator cu ff Asthma Asthma; Comments : NATHALIE 06/07/2015 - Disorder of thyroid 1992 Thyroid dise ase Type 2 diabetes mellitus (HCC) 05/2014 D iabetes type 2; Comments: NATHALIE 06/07/2015 - patient states she is not diabetic Anxiety disorder 2003 Anxiety Hx Other Medical 2010 Allergies, seas onal; Comments: NATHALIE 06/07/2015 - Depression 2004 Depression; Comm ents: WINNIE 06/08/2015 - Anemia PONV (postoperative nausea and vomiting) Motion sickness History of transfusion Methicillin susceptible Stap hylococcus aureus infection 04/24/2016 Patient states she never had MRSA infection, test came back negative Hypertension Cataract Heart disease Chronic kidney disease Sleep apnea patient states s he never had a Sleep study test done SVT (supraventricular tachycardia) ([facility]) Hx of Family History Medical History Relation Name Comments COPD Father Mansi Montgomery Diabetes Father Mansi Montgomery Diabetes katia itus; Heart attack Father Mansi Montgomery Myocardial in farction; Cause of : Myocardial infarction Heart disease Father Mansi Montgomery Heart diseas e; Hypertension Father Mansi Montgomery Hypertension; /Hypertension; Stroke Father Mansi Montgomery Stroke; /Stro ke; Colon cancer Maternal Grandmother Cancer, colon; Asthma Mother Sis Brown Asthma; COPD Mother Sis Brown Depression Mother Sis Brown Diabetes Mother Sis Brown Diabetes katia itus; Endometrial cancer Mother Sis Brown Cancer, endometrial; Heart disease Mother Sis Brown Heart diseas e; Hypertension Mother Sis Brown Hypertension; Thyroid disease Mother Sis Brown Thyroid di sorder; Colon cancer Mother's Brother x3 Cancer, col on; diagnosed in their late 40's to early 50's. they did pass away from colon cancer. Colon cancer Mother's Sister Cancer, colo n; Arthritis Other Blood Clot Other Other Other Family history of Eplipsy; Hypertension Sister 1 Marleni Hypertension; Heart disease Sister 2 Marleni Weant Heart disease; Obesity Sister 2 Marleni Weant Anesthesia problems Neg Hx Relation Name Status Comments Father Mansi Montgomery (Age 68) Maternal Grandmother Mother Sis Brown Alive Mother's Brother x3 Alive Mother's Sister Other Sister 1 Marleni Sister 2 Marleni Weant Social History Tobacco Use Types Packs/Day Years Used Date Smoking Tobacco: Former Cigarettes 0.8 20 0 07/01/1981 - 07/01/2001 Smokeless Tobacco: Former Tobacco Cessation:Counseling Given: Yes Alcohol Use Standard Drinks/Week Comments Yes 0 [...] often do you attend chur ch or confucianist services? 1 to 4 times per year 10/15/2022 Do you belong to any clubs o r organizations such as bahai groups, unions, fraternal or athletic groups, or [...] staff should administer the PHQ-9) 0 07/14/2024 [facility] Occupational Stress Questionnaire Answer Date [...] place to sleep or slept in a fci (including now)? No 10/15/2022 Personal Safety Answer Date Recorded Have you ever been in or are you currently in a harmful physical or emotional relationship or is someone making you feel afraid or unsafe? 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 Not on file Not on file Obstetrics History Para Term AB IAB SAB Ectopic Multiple Livin g Live Births 4 3 3 0 1 3 Date Outcome GA Total Labor Labor/2nd/3rd Weight Sex Type Anes PTL Geetha A1 A5 Name Clin Term Term Term AB Last Filed Vital Signs Vital Sign Reading Time Taken Comments Blood Pressure 99/58 07/15/2024 7:00 AM POLITICAL AIDE Pulse 64 07/15/2024 8:34 AM POLITICAL AIDE Temperature 35.9 ??C (96.7 ??F) 07/15/2024 7:00 AM CS T Respiratory Rate 18 07/15/2024 7:00 AM POLITICAL AIDE Oxygen Saturation 93% 07/15/2024 7:00 AM POLITICAL AIDE Inhaled Oxygen Concentration - - Weight 99.7 kg (219 lb 12.8 oz) 025 11:15 AM POLITICAL AIDE Height 162.6 cm (5' 4 ) 07/14/2024 11:1 5 AM POLITICAL AIDE Body Mass Index 37.73 07/14/2024 11:15 AM POLITICAL AIDE Plan of Treatment Health Maintenance Due Date Last Done Comments Hepatitis C Screening 1965 Hepatitis B Screening 1983 Regular Well Visit/Exam 18-64 08/16/2023 08/16/2022, 08/10/2021, 09/09/2018, Additional history exists Covid-19 Vaccine ( season) 2024 04/23/2022, 04/15/2021, 03/25/2021 Breast Cancer Screening-Mammogram 09/09/2024 09/10/2023, 08/16/2022, 08/10/2021, Additional history exists Pneumococcal vaccine <65 (2 of 2 - PPSV23 or PCV20) 11/06/2024 04/06/2014 Postponed fro m 06/01/2014 (Patient declined, but will receive in the future) Depression Screening 07/05/2025 07/05/2024, 07/03/2024, 01/28/2024, Additional history exists Cervical Cancer Screening 08/10/2026 08/10/2021 Colon Cancer Screening-Colonoscopy 02/29/2028 02/28/2018 DTaP/Tdap/Td Vaccine (2 - Td or Tdap) 07/19/2030 07/19/2020 Colon Cancer Screening-CT Colonography Discontinued 02/28/2018 Colon Cancer Screening-DNA Stool Discontinued 02/28/2018 Colon Cancer Screening-FIT Discontinued 02/28/2018 Colon Cancer Screening-Sigmoidoscopy Discontinued 02/28/2018 Influenza Vaccine Completed 04/27/2024, , 04/23/2022, Additional history exists Zoster Vaccine Completed 04/27/2024, 12/20/2023 Medical Devices Implanted Type Area Marketing Services Vice President Device Identifier Shelf Expiration Date Model / Serial / Lot Medtronic Inc Infuse 18mm Sponge [id number] - [id number] Implanted:Qty: 1 on 02/19/2022 by Raffi Mahan MD at [facility] N/A: Spine Lumbar Medtronic Inc 02/28/2023 [id number] / / [id number] Glob[employer] Creo 6mm 500mm Hexagon End Daryl Spinal Titanium 1120.2500 - [id number] Implanted:Qty: 1 on 02/19/2022 by Raffi Mahan MD at [facility] N/A: Spine Lumbar [employer] 1120.2500 / / Description:1120.2500 Allosource 1-4mm Freeze Dried Crushed Graft 30ml Bone Cancellous [id number] - [id number] Implanted:Qty: 1 on 02/19/2022 by Raffi Mahan MD at [facility] N/A: Spine Lumbar Allosource 11/24/2025 [id number] / / [id number] Allosource 1-4mm Freeze Dried Crushed Graft 30ml Bone Cancellous [id number] - [id number] Implanted:Qty: 1 on 02/19/2022 by Raffi Mahan MD at [facility] N/A: Spine Lumbar Allosource 02/24/2025 [id number] / / [id number] Allosource 1-4mm Freeze Dried Crushed Graft 30ml Bone Cancellous [id number] - [id number] Implanted:Qty: 1 on 02/19/2022 by Raffi Mahan MD at [facility] N/A: Spine Lumbar Allosource 10/28/2025 [id number] / / [id number] Gl[employer] Creo Od6.5 Mm L45 Mm Thread Polyaxial Spine Screw Bone Titanium 5146.1647 - [id number] Implanted:Qty: 1 on 02/19/2022 by Raffi Mahan MD at [facility] N/A: Spine Lumbar [employer] 5146.1647 / / Gl[employer] Creo Od6.5 Mm L50 Mm Thread Polyaxial Spine Screw Bone Titanium 5146.1652 - [id number] Implanted:Qty: 5 on 02/19/2022 by Raffi Mahan MD at [facility] N/A: Spine Lumbar [employer] 5146.1652 / / Gl[employer] Creo Od6.5 Mm L55 Mm Thread Polyaxial Spine Screw Bone Titanium 5146.1657 - [id number] Implanted:Qty: 2 on 02/19/2022 by Raffi Mahan MD at [facility] N/A: Spine Lumbar [employer] 5146.1657 / / Gl[employer] Creo Thread Spinal Cap Locking Nonsterile 1119.0010 - [id number] Implanted:Qty: 10 on 02/19/2022 by Raffi Mahan MD at [facility] N/A: Spine Lumbar [employer] 1119.0010 / / Gl[employer] Creo Od5.5 Mm L40 Mm Thread Polyaxial Spine Screw Bone Titanium 5146.1542 - [id number] Implanted:Qty: 2 on 02/19/2022 by Raffi Mahan MD at [facility] N/A: Spine Lumbar [employer] 5146.1542 / / Description:[id number]. 5146.1542 Depuy Orthopaedics Inc Attune Fb Tib Base Sz 5 Por [id number] - [id number] Implanted:Qty: 1 on 07/14/2024 by Suleiman Multani MD at [facility] Depuy Orthopaed[employer] Inc [id number] 11/28/2033 [id number] / / [id number] Depuy Orthopaedics Inc Insert Tibial Knee Fixed Rm Posterior Stabilized Attune 7mm Size 6 Polyethylene [id number] - [id number] Implanted:Qty: 1 on 07/14/2024 by Suleiman uMltani MD at [facility] Right: Knee [employer] Inc [id number] 03/30/2032 [id number] / / [id number] Depuy Orth[employer]ed[employer] Inc Attune Cruciate Retain Cementless Knee Right 6 Narrow Component [id number] - [id number] Implanted:Qty: 1 on 07/14/2024 by Suleiman Multani MD at [facility] Right: Knee [employer] Inc [id number] 01/28/2034 [id number] / / [id number] Procedures Procedure Name Priority Date/Time Associated Diagnosis Comments XR KNEE RIGHT 1 OR 2 VIEWS IP Routine 07/14/2024 5:13 PM POLITICAL AIDE PERIPHERAL LINE Routine 07/14/2024 2:47 PM POLITICAL AIDE NM AN ELECTIVE ENDOTRACHEAL AIRWAY Routine 07/14/2024 2:45 PM POLITICAL AIDE ARTHROPLASTY TOTAL KNEE 07/14/2024 1:55 PM POLITICAL AIDE Primary osteoarthritis of right knee Special Needs DEPUY-ATTUNE, NMES, CPM, Cooling unit, 1 liter beta rinse and aquamantys (overnight)< PROTIME-INR STAT 07/14/2024 11:44 AM POLITICAL AIDE APTT STAT 07/14/2024 11:44 AM POLITICAL AIDE POTASSIUM, WHOLE BLOOD STAT 07/14/2024 11:44 AM POLITICAL AIDE SURGICAL PATHOLOGY Routine 07/14/2024 9: 07 AM POLITICAL AIDE Primary osteoarthritis of right knee POCT LIPID PANEL Routine 07/03/2024 10:34 AM POLITICAL AIDE Mixed hyperlipidemia ECG 12-LEAD Routine 06/30/2024 12:33 PM POLITICAL AIDE Pre-op testing XR CHEST PA LATERAL 2 VIEWS Schedule Routine, Read Routine (OP Routine) 06/30/2024 12:25 PM POLITICAL AIDE Pre-op testing URINALYSIS AND REFLEX TO MICROSCOPIC AND CULTURE Routine 06/30/2024 12:15 PM POLITICAL AIDE Pre-op testing EGFR Routine 06/30/2024 12:14 PM POLITICAL AIDE Pre-op testing DIFFERENTIAL AUTO Routine 06/30/2024 12:14 PM POLITICAL AIDE Pre-op testing CBC WITH AUTO DIFFERENTIAL Routine 06/30/2024 12:14 PM POLITICAL AIDE Pre-op testing COMPREHENSIVE METABOLIC PANEL Routine 06/30/2024 12:14 PM POLITICAL AIDE Pre-op testing HEMOGLOBIN A1C Routine 06/30/2024 12:14 PM POLITICAL AIDE Pre-op testing SCREENING MAMMOGRAM BILATERAL W TOMER Schedule Routine, Read Routine (OP Routine) 09/10/2023 10:41 AM CDT Encounter for screening mammogram for malignant neoplasm of breast PAP AND HIGH RISK HPV, REFLEX TO GENOTYPING Routine 08/10/2021 11:40 AM POLITICAL AIDE Screening for malignant neoplasm of the cervix COLONOSCOPY 02/28/2018 10:35 AM CDT from Last 3 Months or Most Recently Relevant to Health Maintenance Results * XR Knee Right 1 or 2 View (07/14/2024 5:13 PM POLITICAL AIDE) Anatomical Region Laterality Modality Lower Extremities, Knee Right Computed Radiography 07/14/2024 7:45 PM POLITICAL AIDE Narrative 07/14/2024 7:45 PM POLITICAL AIDE EXAM DESCRIPTION: XR KNEE RIGHT 1 OR 2 VIEWS REASON FOR STUDY: post op ?? Post op right knee ?? TECHNIQUE: AP and lateral ??radiographic view(s) of the ??right knee . COMPARISON: 03/16/2024 FINDINGS: BONES/JOINTS: A total knee prosthesis is seen which is in near anatomic alignment. ??No fracture is apparent. SOFT TISSUES: Subcutaneous emphysema in the soft tissues is consistent with recent surgery. ?? IMPRESSION: 1. ??Interval placement of a total knee prosthesis which is in near anatomic alignment THIS IS AN ELECTRONICALLY VERIFIED FINAL REPORT 07/14/2024 7:45 PM - Electronically signed by ??Rodney Fitzpatrick M.D. BS: BS D: ??07/14/2024 7:45 PM T: ??07/14/2024 7:45 PM Report ID: [id number] Reading Location: ??[id number] Procedure Note Rodney Fitzpatrick MD - 07/14/2024 EXAM DESCRIPTION: XR KNEE RIGHT 1 OR 2 VIEWS REASON FOR STUDY: post op Post op right knee TECHNIQUE: AP and lateral radiographic view(s) of the right knee . COMPARISON: 03/16/2024 FINDINGS: BONES/JOINTS: A total knee prosthesis is seen which is in near anatomic alignment. No fracture is apparent. SOFT TISSUES: Subcutaneous emphysema in the soft tissues is consistentwith recent surgery. IMPRESSION: 1. Interval placement of a total knee prosthesis which is in nearanatomic alignment THIS IS AN ELECTRONICALLY VERIFIED FINAL REPORT 07/14/2024 7:45 PM - Electronically signed by Rodney Fitzpatrick M.D. BS: JERRY Report ID: [id number] Reading Location: [id number] Sola CHACON IM XR PROCEDURES Kristie l Result * Peripheral IV Catheter (07/14/2024 2:47 PM POLITICAL AIDE) Narrative Robert Calzada CRNA - 07/14/2024 2:47 PM POLITICAL AIDE Robert Calzada CRNA ? 07/14/2024 ??2:47 PM Peripheral IV Catheter Patient location: OR Preprocedure prep: Prep solution: alcohol PPE: gloves and provider hat/mask PIV line: Laterality: right Site: hand Catheter size: 20 g Technique: anatomical landmarks, direct visualization and palpatation Procedure details: good blood return and occlusive dressing applied Number of attempts: 1 Assessment: Events: patient tolerated procedure well with no complications Hadley Woodruff MD ANESTHESIA ORDERABLES Final Result * NM AN ELECTIVE ENDOTRACHEAL AIRWAY (07/14/2024 2:45 PM POLITICAL AIDE) Narrative Robert Calzada CRNA - 07/14/2024 2:45 PM POLITICAL AIDE Robert Calzada CRNA ? 07/14/2024 ??2:46 PM Airway Patient location: OR Urgency: elective Indications for airway management: anesthesia Difficult airway: no Staff: Placed by: HOME MANAGEMENT SUPERVISOR: Robert Calzada CRNA Emergent airway documentation: Risks and benefits discussed: yes Consent obtained: yes Consent given by: patient Airway prep: Preoxygenated: yes Patient position: sniffing MILS maintained throughout: yes Mask difficulty assessment: 1 - vent by mask Sedation level during airway: GA Final airway details: Final airway type: endotracheal airway Tube type: ETT ETT size: 7.0 mm Cuffed: yes Technique used for successful ETT placement: video laryngoscopy Devices/Methods used in placement: stylet Insertion site: oral Blade type: Shannen Video blade type: Wilson Blade size: 3 Cormack-Lehane (video): grade I - full view of glottis Cuff volume: 8 mL Cuff inflated with: air ETT to teeth: 22 cm Placement verified by: auscultation and CO2 detection Airway secured with: silk tape Number of attempts: 1 Hadley Woodruff MD ANESTHESIA ORDERABLES Final Result * Potassium, whole blood (07/14/2024 11:44 AM POLITICAL AIDE) Potassium, bld 3.4 3.3 - 4.9 mmol/L Comment: Interpretive Data This method is not able to assess for hemolysis, which may falsely increase potassium concentrations. If further testing is needed to evaluate this result, consider in-laboratory plasma potassium. Current Interpretive Data was last revised on 2022. Blood 07/14/2024 11:4 4 AM POLITICAL AIDE 07/14/2024 11:48 AM POLITICAL AIDE Paulette Walker MD LAB BLOOD ORDERABLES Fin al Result [facility] ([place]) [address] [facility] [place] [address] * (ABNORMAL) aPTT (07/14/2024 11:44 AM POLITICAL AIDE) aPTT 40(H) 28 - 38 sec [facility]) Comment: Interpretive Data Heparin therapeutic range: 66.0 - 100.0 seconds. Range based on correlation with therapeutic heparin activity range of 0.3 - 0.7 Units/mL. Current interpretive data was last revised on 2023. Blood 07/14/2024 11:4 4 AM POLITICAL AIDE 07/14/2024 11:48 AM POLITICAL AIDE Hadley Woodruff MD LAB BLOOD ORDERABLES F inal Result Performing Organization Address [facility] Co de Phone Number [facility] ([place]) [address] [place] [address] * Protime-INR (07/14/2024 11:44 AM POLITICAL AIDE) PT 10.6 9.7 - 13.0 sec [facility] ([place]) INR 0.98 0.90 - 1.20 [facility] ([place]) Comment: Interpretive data Oral anticoagulant therapeutic ranges: Venous thromboembolism prophylaxis or treatment: 2.0-3.0 CARDIOLOGY Standard range: 2.0-3.0 High-intensity range: 2.5-3.5 Refer to indication-specific guidelines for appropriate target ranges for prosthetic heart valve replacement. Current interpretive data was last revised on 2019. Blood 07/14/2024 11:4 4 AM POLITICAL AIDE 07/14/2024 11:48 AM POLITICAL AIDE Hadley Woodruff MD LAB BLOOD ORDERABLES F inal Result Performing Organization Address City/State/[facility] Co de Phone Number [facility] ([place]) [address] [facility] [place] [address] * Surgical pathology (07/14/2024 9:07 AM POLITICAL AIDE) Tissue (Bone Fragment(s),) 07/14/2024 3:45 PM POLITICAL AIDE Comment:Placed in formalin a t time of lab drop off Narrative PATHOLOGY [facility] ([place]) - 07/17/2024 3:52 PM POLITICAL AIDE EPIC results best viewed via link to PDF [facility] Department of Pathology [address] [place], [place] [id number] Note to Patients: This report may contain a detailed description of human tissue sent by a health care provider to the laboratory for pathologic evaluation. The content of this report is essential for diagnosis and may provide important critical findings. This information may be unfamiliar to patients to review without a medical professional present. It is advised that the patient review this report in the presence of a health care provider who can answer questions and explain the details. Final Report Patient Name: ??EUNICE DE LA CRUZ Address: ??[address] [address], ??[place], [place] ??[facility] Gender: ??F : ??1965 (Age: 59) Service: ??Surgery Location: ??[facility] Hospital #: ??[id number] Patient Type: ??[facility] EP OP in bed Accession # ?[id number] Taken: ??07/14/2024 Received: ??07/15/2024 Accessioned: ??07/15/2024 Reported: ??07/17/2024 Physician(s):Dr. Suleiman Multani M.D. Diagnosis: Bone and soft tissue, right total knee arthroplasty: ? - Histologic changes consistent with degenerative joint disease. Yo Stephen MD Report Electronically Reviewed and Signed Out By ??Yo Stephen MD ??07/17/2024 15:52:04 Specimen(s) Received: A: Right knee bone and tissue fragments Microscopic Description: A decalcified section shows erosion and destruction of the articular cartilage. The marrow space appears fatty without significant hematopoietic marrow elements. Also seen are benign-appearing fragments of fibroadipose tissue. ??There is no evidence of malignancy. ??The histologic changes are consistent with the clinical impression of degenerative joint disease. Clinical History: Osteoarthritis of right knee. ??Right total knee arthroplasty. ?? Gross Description: The container is labeled EUNICE DE LA CRUZ and right knee . ??It is a 7 x 6 x 5 cm in aggregate of irregularly-shaped fragments of bone and an approximate 10 cc aggregate of soft tissue consisting of adipose tissue, portions of menisci and some synovium. Recognizable pieces of bone include the tibial plateau and portions of femoral condyles. ??Some of the bone fragments are covered by articular cartilage showing varying degrees of degenerative changes that include eburnation, pitting and roughened granularity. ??Decalcified and represented in two cassettes. Monica Toro R.N., P.A./Stacey Bonilla M.D. REPORT IMAGES AND SCANNED DOCUMENTS, IF INCLUDED, ONLY VIEWABLE IN PDF VERSION OF REPORT The performance characteristics of some immunohistochemical stains, fluorescence in-situ hybridization tests and immunophenotyping by flow cytometry cited in this report (if any) were determined by the Surgical Pathology Department at [facility] as part of an ongoing assistant quality manager program and in compliance with federally mandated regulations drawn from the Clinical Laboratory Improvement Act of 1988 (CLIA '88). ??Some of these tests rely on the use of analyte specific reagents and are subject to specific labeling requirements by the US Food and Drug Administration. ??Such diagnostic tests may only be performed in a facility that is certified by the Department of Health and Human Services as a high complexity laboratory under CLIA '88. The FDA has determined that such clearance or approval is not necessary. ??This test is used for clinical purposes. ??It should not be regarded as investigational or for research. ??Nevertheless, federal rules concerning the medical use of analyte specific reagents require that the following disclaimer be attached to the report: This test was developed and its performance characteristics determined by the Surgical Pathology Department [facility]. ??It has not been cleared or approved by the U. S. Food and Drug Administration. Note for decalcified specimens: This assay has not been validated on decalcified tissues. Results should be interpreted with caution given the possibility of false negativity on decalcified specimens us Suleiman Multani MD LAB PATHOLOGY ORDERABLES Fin al Result PATHOLOGY [facility] ([place]) [address] [place] [address] * POCT lipid panel (07/03/2024 10:34 AM POLITICAL AIDE) Cholesterol, POC 167 mg/dL Comment:GLU=94 HDL, POC 60 mg/dL Triglycerides, POC 102 mg/dL LDL Cholesterol POC 86 mg/dL Chol/HDL Ratio, POC 2.8 Non-HDL Cholesterol, POC 106 mg/dL Cholesterol Total, POC 167 mg/dL Capillary blood 07/03/2024 1 0:34 AM POLITICAL AIDE Yessi Martin NP POINT OF CARE TEST ORDERABL ES Final Result * ECG 12 lead (06/30/2024 12:33 PM POLITICAL AIDE) 06/30/2024 12:3 7 PM POLITICAL AIDE Narrative [facility] - 06/30/2024 1:05 PM POLITICAL AIDE Vent Rate: 61 bpm RR Interval: 973 msec NM Interval: 183 msec QRS Duration: 98 msec QT Interval: 450 msec QTC Interval: 453 msec P-R-T [place]: 71 - 30 - 58 degrees IMPRESSION: SINUS RHYTHM INCOMPLETE RIGHT BUNDLE BRANCH BLOCK ??[90+ ms QRS DURATION, TERMINAL R IN V1/V2, 40+ ms S IN I/aVL/V4/V5/V6] BORDERLINE ECG NO CHANGE FROM PREVIOUS TRACING NOTED Electronically Signed By: Dwain Camejo MD Suleiman Multani MD ECG ORDERABLES Final Result [facility] * XR Chest Pa Lateral 2 Views (06/30/2024 12:25 PM POLITICAL AIDE) Anatomical Region Laterality Modality Body, Chest N/A Computed Radiogr aphy 07/02/2024 6:50 PM POLITICAL AIDE Narrative 07/02/2024 7:51 PM POLITICAL AIDE EXAM DESCRIPTION: XR CHEST PA LATERAL 2 VIEWS REASON FOR STUDY: pre op test ?? Pre op for right knee replacement July 14 ??Asthma ??Former Smoker ??HTN- medicated ? TECHNIQUE: PA and lateral ??radiographic view(s) of the chest. COMPARISON: Chest comparison 03/16/2024. FINDINGS: LUNGS: ??No focal opacity, pleural effusion, or pneumothorax. ?? HEART/MEDIASTINUM: ??Mildly prominent left ventricular contour. ??Heart and mediastinal contours otherwise normal.. LINES/TUBES: ??None. BONES: ??Spinal stabilization hardware at the thoracolumbar region. IMPRESSION: No acute cardiopulmonary abnormality. THIS IS AN ELECTRONICALLY VERIFIED FINAL REPORT 07/02/2024 7:51 PM - Electronically signed by ??eC Donohue M.D. LC: [id number] D: ??07/02/2024 7:51 PM T: ??07/02/2024 7:51 PM Report ID: [id number] Reading Location: ??[id number] Procedure Note Rach Donohue MD - 07/02/2024 EXAM DESCRIPTION: XR CHEST PA LATERAL 2 VIEWS REASON FOR STUDY: pre op test Pre op for right knee replacement July 14 Asthma Former SmokerHTN- medicated TECHNIQUE: PA and lateral radiographic view(s) of the chest. COMPARISON: Chest comparison 03/16/2024. FINDINGS: LUNGS: No focal opacity, pleural effusion, or pneumothorax. HEART/MEDIASTINUM: Mildly prominent left ventricular contour. Heart and mediastinal contours otherwise normal.. LINES/TUBES: None. BONES: Spinal stabilization hardware at the thoracolumbar region. IMPRESSION: No acute cardiopulmonary abnormality. THIS IS AN ELECTRONICALLY VERIFIED FINAL REPORT 07/02/2024 7:51 PM - Electronically signed by Ce Donohue M.D. LC: WILFREDO Report ID: [id number] Reading Location: [id number] us Suleiman Multani MD IMG XR PROCEDURES Final Resu lt * Urinalysis reflex to microscopic and culture Urine, clean voided (06/30/2024 12:15 PM POLITICAL AIDE) Color, ur Straw Yellow Clarity, ur Clear Clear [facility] ([place]) Specific gravity, ur 1.008 1.003 - 1.030 [facility] ([place]) pH, urine 6.5 [facility] ([place]) Comment: Interpretive Data ? Urine pH is affected by diet, medications, systemic acid-base disturbances, and renal tubular function. ??pH may affect urinary stone formation. ??For example, urine pH below 6.0 may help reduce the tendency for calcium phosphate stones and pH greater than 6.0 may reduce the tendency for uric acid stone formation. Source: [facility] Current Interpretive Data was last revised on 2017 Protein, ur ql Negative Negative [facility] ([place]) Glucose, ur ql Negative Negative [facility] ([place]) Ketones, ur Negative Negative [facility] ([place]) Bilirubin, ur Negative Negative [facility] ([place]) Blood, ur Negative Negative [facility] ([place]) Urobilinogen, ur <2.0 <2.0 mg/dL [facility] ([place]) Nitrite, ur Negative Negative [facility] ([place]) Leukocyte esterase, ur Negative Negative [facility] ([place]) UA reflex comment Reflex conditions for microscopic UA and culture not met. [facility] ([place]) Urine, clean voided 06/30/2024 12:15 PM POLITICAL AIDE 06/30/2024 12:20 PM POLITICAL AIDE us Suleiman Multani MD LAB MICROBIOLOGY - GENERAL O RDERABLES Final Result [facility] ([place]) [address] [facility] Department [place] [address] * eGFR (06/30/2024 12:14 PM POLITICAL AIDE) eGFR >90 >=60 mL/min/1. 73 m2 Comment: Interpretive Data Reference Interval Normal ?>/= 90 mL/min/1.73m2 Mildly decreased* ? 60 - 89 mL/min/1.73m2 Mildly to moderately decreased ?45 - 59 mL/min/1.73m2 Moderately to severely decreased ??30 - 44 mL/min/1.73m2 Severely decreased ?15 - 29 mL/min/1.73m2 Kidney Failure ?< 15 ??mL/min/1.73m2 *Relative to young adult level Estimated glomerular filtration rate is determined by the 2020 CKD-EPI equation recommended by the National Kidney Foundation (A Unifying Approach to GFR Estimation: Recommendations of the NKF-ASK Task Force on Reassessing the Inclusion of Race in Diagnosing Kidney Disease, JASN 2020). The CKD-EPI equation should not be used for patients with unstable renal function and has not been validated in children and those over 70. Current interpretive data was last reviewed 2021. Blood 06/30/2024 12:1 4 PM POLITICAL AIDE 06/30/2024 12:21 PM POLITICAL AIDE us Suleiman Multani MD LAB BLOOD ORDERABLES Final R esult [facility] ([place]) [address] [facility] [place] [address] * Differential, auto (06/30/2024 12:14 PM POLITICAL AIDE) Neutrophil abs 3.2 1.5 - 6.5 K/cumm Imm gran abs 0.0 0.0 - 0.1 K/cumm [facility] ([place]) Lymphocyte abs 1.1 0.8 - 3.3 K/cumm [facility] ([place]) Monocyte abs 0.5 0.2 - 0.8 K/cumm [facility] ([place]) Eosinophil abs 0.2 0.0 - 0.5 K/cumm [facility] ([place]) Basophil abs 0.0 0.0 - 0.1 K/cumm [facility] ([place]) Neutrophil pct 63.9 % [facility] ([place]) Comment: Interpretive Data Percent cell count reference ranges are not reported, since discordance with absolute values may lead to misinterpretation of CBC data. Current Interpretive Data was last revised on 2017. Imm gran pct 0.2 % [facility] ([place]) Comment: Interpretive Data Percent cell count reference ranges are not reported, since discordance with absolute values may lead to misinterpretation of CBC data. Current Interpretive Data was last revised on 2017. Lymphocyte pct 21.5 % [facility] ([place]) Comment: Interpretive Data Percent cell count reference ranges are not reported, since discordance with absolute values may lead to misinterpretation of CBC data. Current Interpretive Data was last revised on 2017. Monocyte pct 10.2 % [facility] ([place]) Comment: Interpretive Data Percent cell count reference ranges are not reported, since discordance with absolute values may lead to misinterpretation of CBC data. Current Interpretive Data was last revised on 2017. Eosinophil pct 3.6 % [facility] ([place]) Comment: Interpretive Data Percent cell count reference ranges are not reported, since discordance with absolute values may lead to misinterpretation of CBC data. Current Interpretive Data was last revised on 2017. Basophil pct 0.6 % [facility] ([place]) Comment: Interpretive Data Percent cell count reference ranges are not reported, since discordance with absolute values may lead to misinterpretation of CBC data. Current Interpretive Data was last revised on 2017. Blood 06/30/2024 12:1 4 PM POLITICAL AIDE 06/30/2024 12:21 PM POLITICAL AIDE us Suleiman Multani MD LAB BLOOD ORDERABLES Final R esult [facility] ([place]) [address] [facility] [place] [address] * CBC with auto differential (06/30/2024 12:14 PM POLITICAL AIDE) WBC 5.0 3.8 - 9.9 K/cumm Hgb 12.2 11.9 - 15.5 g/dL [facility] ([place]) Hct 37.1 35.6 - 45.5 % [facility] ([place]) Plt 220 150 - 400 K/cumm [facility] ([place]) MPV 9.9 9.1 - 12.3 fL [facility] ([place]) RBC 3.96 3.90 - 5.20 M/cumm [facility] ([place]) MCV 93.7 81.3 - 96.4 fL [facility] ([place]) MCH 30.8 27.1 - 33.3 pg [facility] ([place]) MCHC 32.9 32.3 - 35.7 g/dL [facility] ([place]) RDW CV 12.3 11.1 - 14.9 % [facility] ([place]) RDW SD 42.7 35.7 - 48.1 fL [facility] ([place]) NRBC abs 0.00 0.00 - 0.01 K/cumm [facility] ([place]) Blood 06/30/2024 12:1 4 PM POLITICAL AIDE 06/30/2024 12:21 PM POLITICAL AIDE Suleiman Multani MD LAB BLOOD ORDERABLES Final R esult Performing Organization Address City/[facility] Co de Phone Number [facility] ([place]) [address] [facility] [place] [address] * (ABNORMAL) Hemoglobin A1c (06/30/2024 12:14 PM POLITICAL AIDE) Hgb A1C 5.7(H) 4.0 - 5.6 % Estimated Average Glucose 117 mg/dL [facility] ([place]) Comment: The ADA recommends reporting an estimated Average Glucose (eAG) with all Hemoglobin A1c results using the equation derived from a study of 507 normal and diabetic adults. ??Minority populations were underrepresented and children were not included. ?? (Diabetes Care 31:5673-8036, 2008). ??The eAG is not equivalent to a fasting glucose. Blood 06/30/2024 12:1 4 PM POLITICAL AIDE 06/30/2024 12:21 PM POLITICAL AIDE Suleiman Multani MD LAB BLOOD ORDERABLES Final R esult Performing Organization Address City/[facility]/ZIP Co de Phone Number [facility] ([place]) [address] [facility] [place] [address] * (ABNORMAL) Comprehensive metabolic panel (06/30/2024 12:14 PM POLITICAL AIDE) Sodium 142 135 - 145 mmol/L Potassium, pl 3.8 3.3 - 4.9 mmol/L [facility] ([place]) Chloride 101 97 - 110 mmol/L [facility] ([place]) CO2 31 22 - 32 mmol/L [facility]) Anion gap 10 2 - 15 mmol/L [facility] ([place]) BUN 7 6 - 25 mg/dL [facility] ([place]) Creatinine 0.71 0.60 - 1.10 mg/dL [facility] ([place]) Glucose 103 70 - 199 mg/dL [facility] ([place]) Comment: Interpretive Data Fasting glucose >/= 126 mg/dl is diagnostic for diabetes. ?? Fasting is defined as no caloric intake for at least 8 hours. Fasting glucose between 100 mg/dl to 125 mg/dl is diagnostic of prediabetes. In a patient with classic symptoms of hyperglycemia or hyperglycemic crisis, a random glucose >/= 200 mg/dl is diagnostic for diabetes. In the absence of unequivocal hyperglycemia, results should be confirmed by repeat testing. The classification and Diagnosis of Diabetes Diabetes Care 2021; 46: S19-S40. Current interpretive data was last revised 2022. Calcium 9.9 8.5 - 10.3 mg/dL [facility] ([place]) Bilirubin, total 0.3 0.1 - 1.2 mg/dL [facility] ([place]) Protein, pl 6.7 6.5 - 8.5 g/dL [facility] ([place]) Albumin 4.2 3.5 - 5.0 g/dL [facility] ([place]) Alk phos 155(H) 40 - 130 Units/L [facility] ([place]) ALT 18 7 - 45 Units/L [facility] ([place]) AST 23 10 - 45 Units/L [facility] ([place]) Comment:Slightly Hemolyzed S pecimen Blood 06/30/2024 12:1 4 PM POLITICAL AIDE 06/30/2024 12:21 PM POLITICAL AIDE Suleiman Multani MD LAB BLOOD ORDERABLES Final R esult [facility] [place]) [address] [facility] Department [place] [address] * Screening Mammogram Bilateral W Tomer (09/10/2023 10:41 AM CDT) Anatomical Region Laterality Modality Breast Bilateral Mammography Narrative 09/10/2023 4:31 PM CDT BILATERAL DIGITAL MAMMOGRAPHY with tomography. The present examination has been compared to prior imaging studies dated 08/16/2022 and 08/10/2021. Mammography Findings CAD (computer-aided detection) software was utilized. There are scattered fibroglandular densities that could obscure a lesion on mammography. No masses, significant calcifications or other abnormalities are seen. Impression There is no mammographic evidence of malignancy. Screening mammogram in 1 year is recommended. BI-RADS Category 1: Negative PATIENT LETTER SENT Antonietta Arita MD IMG MAMMO PROCEDURES Final Result * Pap and High Risk HPV, reflex to Genotyping (08/10/2021 11:40 AM POLITICAL AIDE) Thin prep (Pap test) 08/10/2021 11:40 AM POLITICAL AIDE 08/10/2021 11:40 AM POLITICAL AIDE Narrative PATHOLOGY [facility] - 08/15/2021 10:18 AM POLITICAL AIDE [facility] Department of Pathology [address] [place] [address] Final Report with Addendum Note to Patients: This report may contain a detailed description of human tissue sent by a health care provider to the laboratory for pathologic evaluation. The content of this report is essential for diagnosis and may provide important critical findings. This information may be unfamiliar to patients to review without a medical professional present. It is advised that the patient review this report in the presence of a health care provider who can answer questions and explain the details. Patient Name: ??EUNICE DE LA CRUZ Address: ?? [address], ?? [place], [place] [address] Gender: ??F : ??1965 (Age: 56) Service: ??Laboratory Location: ??Lab Hospital #: ??[id number] Patient Type: ??CH Ref Lab Taken: ??08/10/2021 Received: ??08/10/2021 Accessioned:: ??08/11/2021 Reported: ??08/15/2021 Physician(s): MD Antonietta Fields MD Diagnosis: Source of Specimen: ? SCREENING THIN PREP IMAGED PAP w/ HPV Specimen Adequacy: ?- Satisfactory for evaluation; endocervical/transformation zone component present General Category: ?- Negative for intraepithelial lesion or malignancy Interpretation/Results: ?- Numerous inflammatory cells present KATE Awan(ASCP) Report Electronically Reviewed and Signed Out By ??KATE Awan(ASCP) ??08/15/2021 10:18:14 ??Addenda: HPV Test Interpretation NEGATIVE for types 16, 18, 31, 33, 35, 39, 45, 51, 52, 56, 58, 59, 66 and 68. Test performed utilizing Gen-Probe Aptima assay. ?? KATE Loaiza(ASCP) ??Report Electronically Reviewed and Signed Out By ??KATE Loaiza(ASCP) ??08/14/2021 11:38:04 ? Specimen(s) Received: A: SCREENING THIN PREP IMAGED PAP w/ HPV Clinical History: Menstrual History: Post-menopausal The Pap test is a screening test used to aid in the detection of cervical cancer and its precursors. ??It should not be the sole means by which malignant and premalignant lesions are diagnosed. ??Both false negative and false positive results may occur. ?? It also has poor sensitivity for the detection of endometrial lesions and should not be used to evaluate suspected endometrial abnormalities. ??For these reasons it is most important to obtain Pap tests at regular intervals. The performance characteristics of some immunohistochemical stains, fluorescence in-situ hybridization tests and immunophenotyping by flow cytometry cited in this report (if any) were determined by the Surgical Pathology Department at [facility] as part of an ongoing assistant quality manager program and in compliance with federally mandated regulations drawn from the Clinical Laboratory Improvement Act of 1988 (CLIA '88). ??Some of these tests rely on the use of analyte specific reagents and are subject to specific labeling requirements by the US Food and Drug Administration. ??Such diagnostic tests may only be performed in a facility that is certified by the Department of Health and Human Services as a high complexity laboratory under CLIA '88. The FDA has determined that such clearance or approval is not necessary. ??This test is used for clinical purposes. ??It should not be regarded as investigational or for research. ??Nevertheless, federal rules concerning the medical use of analyte specific reagents require that the following disclaimer be attached to the report: This test was developed and its performance characteristics determined by the Surgical Pathology Department [facility]. ??It has not been cleared or approved by the U. S. Food and Drug Administration. Antonietta Arita MD LAB CYTOLOGY ORDERABL ES Final Result Performing Organization Address City/State/[facility] Co de Phone Number PATHOLOGY [address] [place] [address] * COLONOSCOPY (02/28/2018 10:35 AM CDT) Anatomical Region Laterality Modality Other Narrative Procedure Note Master Lorenzo MD - 02/28/2018 10:35 AM CDT [facility] Patient Name: Eunice De La Cruz Procedure Date: 02/28/2018 10:35 AM Date of : 1965 Admit Type: Outpatient Age: 53 Gender: Female Attending MD: Master Lorenzo M.D. Room: [facility] ENDOSCOPY ROOM 1 Note Status: Finalized Procedure: Colonoscopy Indications: Screening for colorectal malignant neoplasm, Last colonoscopy: December 2008 Referring MD: Jason Garber M.D. Providers: Master Lorenzo M.D. Impression: - Hemorrhoids found on perianal exam. - The entire examined colon is normal. - No specimens collected. Recommendation: - Discharge patient to home. - Resume previous diet. - Continue present medications. - Repeat colonoscopy in 10 years for screeningpurposes. - Return to primary care physician as previously scheduled. Medicines: Propofol per Anesthesia Complications: No immediate complications. Estimated Blood Loss: Estimated blood loss: none. Procedure: The benefits, risks and alternatives of theprocedure and sedation were discussed and informed consent was obtained. All questions were answered. Please referto the signed informed consent document in the medical record. The scope was passed under direct vision.The Pediatric Colonoscope [id number]-[id number] was introduced through the anus and advanced to the the cecum, identified by appendiceal orifice andileocecal valve. The colonoscopy was performed without difficulty. The patient tolerated the procedurewell. The quality of the bowel preparation was good. Findings: Hemorrhoids were found on perianal exam. The colon (entire examined portion) appeared normal. Electronically signed by Master Lorenzo M.D. Master Lorenzo M.D. 02/28/2018 11:18:11 AM Number of Addenda: 0 Note Initiated On: 02/28/2018 10:35 AM Procedure Code(s): --- Professional --- G0121, Colorectal cancer screening; colonoscopy on individual not meeting criteria for high risk Diagnosis Code(s): --- Professional --- K64.9, Unspecified hemorrhoids Z12.11, Encounter for screening for malignant neoplasm of colon CPT copyright 2017 [employer]. All rights reserved. The codes documented in this report are preliminary and upon aligner typewriter reviewmay be revised to meet current compliance requirements. Recognized by the [employer] [employer] for promoting quality in endoscopy Master Lorenzo MD ENDOSCOPY PROCEDURES Final Re sult from Last 3 Months or Most Recently Relevant to Health Maintenance Insurance [employer] [place] [facility] Address: [address] [place] [address] [facility] Address: [address] [place] [address] [place] [id number] [facility]O Address: [address] [place] [address] Advance Directives For more information, please contact: [phone] Documents on File Type Date Recorded Patient Ginger Farmer Expl anation Advance Directives and Livin g Will 02/19/2022 5:20 AM * Full Code (Latest Code Status on File) Date Activated Date Inactivated Comments 07/14/2024 6:32 PM 07/15/2024 3:35 PM * Full Code Date Activated Date Inactivated Comments 02/19/2022 3:02 PM 02/22/2022 8:20 PM Care Teams Press Leader Relationship Specialty Start Date End Date Jason Garber MD [address] [place] [address] PCP - General 09/28/16 Nathalie Munroe, PT Physical Therapist Physical Therapy 11/09/21 Raffi Mahan MD [address] [facility] [address] [place] [address] Surgeon Orthopedic Surgery 02/20/22
--- OUTSIDE RECORDS SUMMARY | 2024-07-28 15:36 | XMS_ITS | Referral Summary ---
Author Organization [facility] Address [address] [place] [address] Care Team Providers Care Supervisor Functional Testing Name Role Phone Jason Garber MD Primary Care Provider [phone] Nathalie Munroe PT Unavailable Unavaila ble Raffi Mahan MD Unavailable [phone] Encounters Date Type Department Care Team Description 07/28/2024 Orders Only [facility] Sports Medicine [address] [place] [address] [address] [place] [address] Sola Rashid PA Swelling of right knee joint (Primary Dx); S/P TKR (total knee replacement), right 07/28/2024 Telephone [facility] Medicine [address] [place] [address] [address] [place] [address] Sola Rashid PA 07/28/2024 1:00 PM PRESIDENT AND CMO Telemedicine [facility] [address] [place] [address] [address] [place] [address] Sola Rashid PA S/P TKR (total knee replacement), right (Primary Dx); Orthopedic aftercare; Pain and swelling of right lower extremity 07/23/2024 Telephone [facility] Medicine [address] [place] [address] [address] [place] [address] John Jones PA 07/23/2024 Orders Only [facility] Medicine [address] [place] [address] [address] [place] [address] John Jones PA 07/21/2024 Telephone [facility] [address] [place] [address] [address] [place] [address] Suleiman Multani MD 07/20/2024 Telephone [facility] Medicine [address] [place] [address] [address] [place] [address] Suleiman Multani MD Post-Op Call 07/20/2024 [facility] Post Discharge Follow up phone call [address] [address] Trina Jarvis RViviane 07/17/2024 [facility] Post Discharge Follow up phone call [address] [address] Trina Jarvis RViviane 07/14/2024 10:55 AM PRESIDENT AND CMO - 07/15/2024 11:35 AM PRESIDENT AND CMO Hospital Encounter [address] [address] Suleiman Multani MD S/P TKR (total knee replacement), right (Primary Dx); Primary osteoarthritis of right knee Discharge Disposition: Discharge to home or self care 07/14/2024 Orders Only [facility] Medical [facility] Orthopedics and Sports Medicine [address] [place] [phone] Suleiman Multani MD Primary osteoarthritis of right knee (Primary Dx) 07/14/2024 1:30 PM PRESIDENT AND CMO - 07/14/2024 4:00 PM PRESIDENT AND CMO Surgery [facility] Operating Room [address] [place] [address] Suleiman Multani MD Right total knee arthroplasty 07/14/2024 2:19 PM PRESIDENT AND CMO Anesthesia Event [facility] Operating Room [address] [place] [address] Hadley Woodruff MD McDowell, Juri Osmell, MD 07/03/2024 10:36 AM PRESIDENT AND CMO - 07/03/2024 11:59 PM PRESIDENT AND CMO Hospital Encounter [address] [address] Discharge Disposition: Discharge to home or self care 07/03/2024 10:30 AM PRESIDENT AND CMO [facility] Visit [facility] [address] [address] Yessi Martin NP Primary osteoarthritis of both knees (Primary Dx); Mixed hyperlipidemia; Hypertension, essential; Acquired hypothyroidism; Anxiety; S/P spinal fusion; Class 2 severe obesity due to excess calories with serious comorbidity and body mass index (BMI) of 37.0 to 37.9 in adult (HCC) 06/30/2024 12:05 PM PRESIDENT AND CMO Lab [address] [address] Pre-op testing 06/30/2024 12:04 PM PRESIDENT AND CMO - 06/30/2024 11:59 PM PRESIDENT AND CMO Hospital Encounter [facility] [address] [place] [address] Pre-op testing Discharge Disposition: Discharge to home or self care 06/30/2024 12:01 PM PRESIDENT AND CMO - 06/30/2024 11:59 PM PRESIDENT AND CMO Hospital Encounter [facility] [address] [place] [address] Pre-op testing Discharge Disposition: Discharge to home or self care 06/29/2024 Orders Only [facility] [address] [address] Jason Garber MD Left hip pain; Right hip pain; Greater trochanteric pain syndrome of both lower extremities; Trochanteric bursitis of left hip; Tendinopathy of left gluteal region; Tendinopathy of right gluteus medius from Last 3 Months Allergies No known active allergies Medications albuterol [...] MOUTH TWICE A DAY 180 capsule 3 025 Active ascorbic acid (VITAMIN C) 500 mg [...] 01/28/2024 Assessment & Plan (07/03/2024 10:56 AM PRESIDENT AND CMO): Blood pressure is very well controlled. Continue [...] 03/07/2023 Assessment & Plan (07/04/2023 12:25 PM PRESIDENT AND CMO): Improvement in gait and strength with physical therapy. Some increase in hip pain with exercises, discussed p.r.n. use of ibuprofen. Will continue to monitor. Assessment & Plan (03/07/2023 10:35 AM CDT): Encourage physical therapy, patient is agreeable. Referral placed today for physical therapy eval/treatment. S/P spinal fusion 02/19/2022 Assessment & Plan (07/03/2024 10:55 AM PRESIDENT AND CMO): Continues sparing use of gabapentin and Flexeril. [...] therapy. Assessment & Plan (07/04/2023 12:25 PM PRESIDENT AND CMO): Patient is benefitting from physical therapy exercises, [...] (01/31/2022): Added automatically from request for surgery [id number] Pain, lumbar region 01/31/2022 Overview (01/31/2022): Added automatically from request for surgery [id number] Lumbar radiculopathy 01/31/2022 Overview (01/31/2022): Added automatically from request for surgery [id number] Spinal stenosis of lumbar region 01/31/2022 Overview (01/31/2022): Added automatically from request for surgery [id number] Class 2 obesity in adult 10/03/2021 Assessment & Plan (07/03/2024 10:57 AM PRESIDENT AND CMO): No longer taking Wegovy, we has been maintained. Continues working towards weight loss. Hopeful to increase walking following knee replacement. Assessment & Plan (01/28/2024 10:36 AM CDT): Discussed the importance of eating several small meals frequently throughout the day, avoid fasting. Discussed hypoglycemia with use of Wegovy. Will continue to monitor closely. Assessment & Plan (07/04/2023 12:24 PM PRESIDENT AND CMO): Doing very well with wegovy. Denies any [...] cessation. Discussed different types of medications & pyau-rne-djljglu aides to help with cessation. Closed compression [...] prn & oxycodone 5mg tid prn. To orange picker lidocaine patch. Aware to apply x12hrs & remove for 12 hrs. To use naproxen & tylenol for pain & oxycodone for more severe pain. [facility] ER paperwork given information for: Dr Wagner Maldonado (orthopedic surgery) at [facility] [phone]. Referral sent to Dr Mahan at [facility]: contact info given. Will call their office [...] 08/09/2020 Assessment & Plan (07/03/2024 10:55 AM PRESIDENT AND CMO): Plans to have arthroscopy right knee with Dr. Multani on 07/14. No contraindications to upcoming surgery. Assessment & Plan (11/22/2023 11:57 AM CDT): Previous good response to injections with ortho, plans to schedule follow up. Again discussed benefits of weight loss. Mixed hyperlipidemia 07/26/2020 Assessment & Plan (07/03/2024 10:56 AM PRESIDENT AND CMO): Doing well with atorvastatin 20 mg daily, no changes made today. Assessment & Plan (07/04/2023 12:23 PM PRESIDENT AND CMO): Labs ordered today, continue atorvastatin 20 mg daily. Assessment & Plan (03/07/2023 10:43 AM CDT): Continues atorvastatin, fasting labs ordered today. Will continue to monitor Assessment & Plan (07/27/2020 8:11 PM PRESIDENT AND CMO): 07/26/20 VH=273 HDL=56 VD=487 SXJ=096 TC/HDL=4.1 Copy of results given to Eunice De La Cruz. Reviewed results at time of appointment. Acute pain of left knee 07/26/2020 Assessment & Plan (07/27/2020 8:09 PM PRESIDENT AND CMO): Referral to [facility] for further eval. To continue NSAIDs & icing. Discussed bracing if needed d/t lateral laxity. Contact info for [facility] given to Mrs De La Cruz. SVT (supraventricular tachycardia) 06/27/2020 Major depressive disorder in partial remission 1 08/28/2019 Varicose veins of lower extremity with pain, rig ht 05/16/2018 Overview (05/16/2018): Added automatically from request for surgery [id number] Varicose veins of lower extr emities with complications, right 05/16/2018 Overview (05/16/2018): Added automatically from request for surgery [id number] Family hx of colon cancer 01/23/2018 Overview (01/23/2018): Added automatically from request for surgery [id number] Morbid obesity with BMI of 40.0-44.9, adult 10/30 Assessment & Plan (11/22/2023 12:04 PM CDT): [...] instructions). Assessment & Plan (07/26/2020 1:23 PM PRESIDENT AND CMO): Has lost 17# since 06/27/20 appt. Reviewed need to lose weight, reviewed health benefits. Reviewed recommendations for daily intake & activity 20-30 minutes/day. Discussed healthy diet and importance of regular physical activity. Anxiety 08/12/2015 Overview (10/04/2016): Anxiety Assessment & Plan (07/03/2024 10:57 AM PRESIDENT AND CMO): Reports moods are stable. No changes made [...] monitor. Assessment & Plan (07/25/2019 4:54 PM PRESIDENT AND CMO): Info for [facility] intensive OP program givenf [...] Hypothyroidism Assessment & Plan (07/03/2024 10:56 AM PRESIDENT AND CMO): Levothyroxine 100 mcg daily. Will check TSH/T4 and make changes as needed. Lab Results Component Value Date TSH 0.76 01/24/2024 TSH 0.51 03/07/2023 TSH 1.81 10/19/2022 Assessment & Plan (07/04/2023 12:23 PM PRESIDENT AND CMO): Levothyroxine 100 mcg daily. Will check TSH/T4 [...] (BMI) of 38.0 to 38.9 in adult 09/19/202110/2021 Assessment & Plan (09/19/2021 2:07 PM CDT): [...] 21 Assessment & Plan (07/27/2020 8:10 PM PRESIDENT AND CMO): Has lost 17# since WADE. BMI has dropped nearly 3 points. Reviewed need to lose weight, reviewed health benefits. Reviewed recommendations for daily intake & activity 20-30 minutes/day. Discussed healthy diet and importance of regular physical activity. BMI 37.0-37.9, adult 07/25/2019 021 Assessment & Plan (07/25/2019 4:52 PM PRESIDENT AND CMO): Reviewed need to lose weight, reviewed health benefits. Reviewed recommendations for daily intake & activity 20-30 minutes/day. Discussed healthy diet and importance of regular physical activity. Tonsillitis 07/24/2019 10/07/2020 Assessment & Plan (07/25/2019 4:49 PM PRESIDENT AND CMO): augmentin 875/125mg po bid x 10 days [...] mellitus 05/31/201409/2023 Overview (10/04/2016): Type 2 diabetes Immunizations Name Administration Dates Next Due Influenza, Quadrivalent, Spl it, Preservative Free, Intramuscular 03/07/2023,04/23/2022,06/27/2020,05/12,04/11/2018,03/08/2017,03/31/2016 Influenza, Trivalent, IM (MDV) 05/18/2014 Influenza, Trivalent, Preser vative Free, Intramuscular 04/27/2024,04/24/2016 Influenza, Unspecified 08/24/2021(Deferr ed: Patient Refused),03/31/2021(Deferred: Patient Refused),03/31/2021(Deferred: Patient Refused),03/01/2021(Deferred: Patient Refused),03/31/2017 Pfizer SARS-CoV-2 Monovalent Vaccination (12+ Yrs) PURPLE 04/23/2022 Pneumococcal Conjugate PCV 13 04/06/2014 Tdap 07/19/2020 ZOSTER Recombinant 04/27/2024,12/20/2023 Social History Tobacco Use Types Packs/Day Years [...] friends, or neighbors? Once a week 10/16/19 23 How often do you get togethe r with friends or relatives? Once a week 10/15/2022 How often do you attend chur or baptist services? 1 to 4 times per year 10/15/2022 Do you belong to any clubs o r organizations such as confucianist groups, unions, fraternal or athletic groups, or [...] the PHQ-9) 0 07/14/2024 [facility] - Occupational Stress [...] place to sleep or slept in a custodial (including now)? No 10/15/2022 Personal Safety Answer Date Recorded Have you ever been in or are you currently in a harmful physical or emotional relationship or is someone making you feel afraid or unsafe? 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 on file Not on file Not on file Last Filed Vital Signs Vital Sign Reading Time Taken Comments Blood Pressure 99/58 07/15/2024 7:00 AM PRESIDENT AND CMO Pulse 64 07/15/2024 8:34 AM PRESIDENT AND CMO Temperature 35.9 ??C (96.7 ??F) 07/15/2024 7:00 AM CS T Respiratory Rate 18 07/15/2024 7:00 AM PRESIDENT AND CMO Oxygen Saturation 93% 07/15/2024 7:00 AM PRESIDENT AND CMO Inhaled Oxygen Concentration - - Weight 99.7 kg (219 lb 12.8 oz) 025 11:15 AM PRESIDENT AND CMO Height 162.6 cm (5' 4 ) 07/14/2024 11:1 5 AM PRESIDENT AND CMO Body Mass Index 37.73 07/14/2024 11:15 AM PRESIDENT AND CMO Plan of Treatment Not on file Medical Devices Implanted Type Area Supervisor Welding Equipment Repairer Device Identifier Shelf Expiration Date Model / Serial / Lot Medtronic Inc Infuse 18mm Sponge [id number] - [id number] Implanted:Qty: 1 on 02/19/2022 by Raffi Mahan MD at [facility] N/A: Spine Lumbar Medtronic Inc 02/28/2023 [id number] / / [id number] [employer] Creo 6mm 500mm Hexagon End Daryl Spinal Titanium 1120.2500 - [id number] Implanted:Qty: 1 on 02/19/2022 by Raffi Mahan MD at [facility] N/A: Spine Lumbar [employer] 1120.2500 / / Description:1120.2500 Allosource 1-4mm Freeze Dried Crushed Graft 30ml Bone Cancellous [id number] - [id number] Implanted:Qty: 1 on 02/19/2022 by Raffi Mahan MD at [facility] N/A: Spine Lumbar Allosource 11/24/2025 [id number] / / [id number] Allosource 1-4mm Freeze Dried Crushed Graft 30ml Bone Cancellous [id number] - [id number] Implanted:Qty: 1 on 02/19/2022 by Raffi Mahan MD at [facility] N/A: Spine Lumbar Allosource 02/24/2025 [id number] / / [id number] Allosource 1-4mm Freeze Dried Crushed Graft 30ml Bone Cancellous [id number] - [id number] Implanted:Qty: 1 on 02/19/2022 by Raffi Mahan MD at [facility] N/A: Spine Lumbar Allosource 10/28/2025 [id number] / / [id number] [employer] Creo Od6.5 Mm L45 Mm Thread Polyaxial Spine Screw Bone Titanium 5146.1647 - [id number] Implanted:Qty: 1 on 02/19/2022 by Raffi Mahan MD at [facility] N/A: Spine Lumbar [employer] 5146.1647 / / [employer] Creo Od6.5 Mm L50 Mm Thread Polyaxial Spine Screw Bone Titanium 5146.1652 - [id number] Implanted:Qty: 5 on 02/19/2022 by Raffi Mahan MD at [facility] N/A: Spine Lumbar [employer] 5146.1652 / / [employer] Creo Od6.5 Mm L55 Mm Thread Polyaxial Spine Screw Bone Titanium 5146.1657 - [id number] Implanted:Qty: 2 on 02/19/2022 by Raffi Mahan MD at [facility] N/A: Spine Lumbar [employer] 5146.1657 / / [employer] Creo Thread Spinal Cap Locking Nonsterile 1119.0010 - [id number] Implanted:Qty: 10 on 02/19/2022 by Raffi Mahan MD at [facility] N/A: Spine Lumbar [employer] 1119.0010 / / [employer] Creo Od5.5 Mm L40 Mm Thread Polyaxial Spine Screw Bone Titanium 5146.1542 - [id number] Implanted:Qty: 2 on 02/19/2022 by Raffi Mahan MD at [facility] N/A: Spine Lumbar [employer] 5146.1542 / / Description:[id number] 540. 5146.1542 Depuy Orthopaed[employer] Inc Attune Fb Tib Base Sz 5 Por [id number] - [id number] Implanted:Qty: 1 on 07/14/2024 by Suleiman Multani MD at [facility] [employer] Orth[employer]ed[employer] Inc [id number] 11/28/2033 [id number] / / [id number] Depuy Orthopaed[employer] Inc Insert Tibial Knee Fixed Rm Posterior Stabilized Attune 7mm Size 6 Polyethylene [id number] - [id number] Implanted:Qty: 1 on 07/14/2024 by Suleiman Multani MD at [facility] Right: Knee [employer] Inc [id number] 03/30/2032 [id number] / / [id number] Dep[employer] Orth[employer]ed[employer] Inc Attune Cruciate Retain Cementless Knee Right 6 Narrow Component [id number] - [id number] Implanted:Qty: 1 on 07/14/2024 by Suleiman Multani MD at [facility] Right: Knee [employer] Inc [id number] 01/28/2034 [id number] / / [id number] Procedures Procedure Name Priority Date/Time Associated Diagnosis Comments XR KNEE RIGHT 1 OR 2 VIEWS IP Routine 07/14/2024 5:13 PM PRESIDENT AND CMO PERIPHERAL LINE Routine 07/14/2024 2:47 PM PRESIDENT AND CMO TX AN ELECTIVE ENDOTRACHEAL AIRWAY Routine 07/14/2024 2:45 PM PRESIDENT AND CMO ARTHROPLASTY TOTAL KNEE 07/14/2024 1:55 PM PRESIDENT AND CMO Primary osteoarthritis of right knee Special Needs DEPUY-ATTUNE, NMES, CPM, Cooling unit, 1 liter beta rinse and aquamantys (overnight)< PROTIME-INR STAT 07/14/2024 11:44 AM PRESIDENT AND CMO APTT STAT 07/14/2024 11:44 AM PRESIDENT AND CMO POTASSIUM, WHOLE BLOOD STAT 07/14/2024 11:44 AM PRESIDENT AND CMO SURGICAL PATHOLOGY Routine 07/14/2024 9: 07 AM PRESIDENT AND CMO Primary osteoarthritis of right knee POCT LIPID PANEL Routine 07/03/2024 10:34 AM PRESIDENT AND CMO Mixed hyperlipidemia ECG 12-LEAD Routine 06/30/2024 12:33 PM PRESIDENT AND CMO Pre-op testing XR CHEST PA LATERAL 2 VIEWS Schedule Routine, Read Routine (OP Routine) 06/30/2024 12:25 PM PRESIDENT AND CMO Pre-op testing URINALYSIS AND REFLEX TO MICROSCOPIC AND CULTURE Routine 06/30/2024 12:15 PM PRESIDENT AND CMO Pre-op testing EGFR Routine 06/30/2024 12:14 PM PRESIDENT AND CMO Pre-op testing DIFFERENTIAL AUTO Routine 06/30/2024 12:14 PM PRESIDENT AND CMO Pre-op testing CBC WITH AUTO DIFFERENTIAL Routine 06/30/2024 12:14 PM PRESIDENT AND CMO Pre-op testing COMPREHENSIVE METABOLIC PANEL Routine 06/30/2024 12:14 PM PRESIDENT AND CMO Pre-op testing HEMOGLOBIN A1C Routine 06/30/2024 12:14 PM PRESIDENT AND CMO Pre-op testing SCREENING MAMMOGRAM BILATERAL W TOMER Schedule Routine, Read Routine (OP Routine) 09/10/2023 10:41 AM CDT Encounter for screening mammogram for malignant neoplasm of breast PAP AND HIGH RISK HPV, REFLEX TO GENOTYPING Routine 08/10/2021 11:40 AM PRESIDENT AND CMO Screening for malignant neoplasm of the cervix COLONOSCOPY 02/28/2018 10:35 AM CDT from Last 3 Months or Most Recently Relevant to Health Maintenance Results * XR Knee Right 1 or 2 View (07/14/2024 5:13 PM PRESIDENT AND CMO) Anatomical Region Laterality Modality Lower Extremities, Knee Right Computed Radiography 07/14/2024 7:45 PM PRESIDENT AND CMO Narrative 07/14/2024 7:45 PM PRESIDENT AND CMO EXAM DESCRIPTION: XR KNEE RIGHT 1 OR [...] Electronically signed by ??Rodney Fitzpatrick M.D. BS: JERRY D: ??07/14/2024 7:45 PM T: ??07/14/2024 7:45 PM Report ID: [id number] Reading Location: ??[id number] Procedure Note Rodney Fitzpatrick MD - 07/14/2024 [...] Electronically signed by Rodney Fitzpatrick M.D. BS: BS Report ID: [id number] Reading Location: [place] [address] Sola CHACON IMG XR PROCEDURES Kristie l Result * Peripheral IV Catheter (07/14/2024 2:47 PM PRESIDENT AND CMO) Narrative Robert Calzada CRNA - 07/14/2024 2:47 PM PRESIDENT AND CMO Robert Calzada CRNA ? 07/14/2024 ??2:47 PM [...] Woodruff MD ANESTHESIA ORDERABLES Final Result * TX AN ELECTIVE ENDOTRACHEAL AIRWAY (07/14/2024 2:45 PM PRESIDENT AND CMO) Narrative Robert Calzada CRNA - 07/14/2024 2:45 PM PRESIDENT AND CMO Robert Calzada CRNA ? 07/14/2024 ??2:46 PM Airway Patient location: OR Urgency: elective Indications for airway management: anesthesia Difficult airway: no Staff: Placed by: ATG ARCHITECT: Robert Calzada CRNA Emergent airway documentation: Risks [...] with: silk tape Number of attempts: 1 us Hadley Woodruff MD ANESTHESIA ORDERABLES Final Result * Potassium, whole blood (07/14/2024 11:44 AM PRESIDENT AND CMO) Potassium, bld 3.4 3.3 - 4.9 mmol/L Comment: Interpretive Data This method is not able to assess for hemolysis, which may falsely increase potassium concentrations. If further testing is needed to evaluate this result, consider in-laboratory plasma potassium. Current Interpretive Data was last revised on 2022. Blood 07/14/2024 11:4 4 AM PRESIDENT AND CMO 07/14/2024 11:48 AM PRESIDENT AND CMO Paulette Walker MD LAB BLOOD ORDERABLES Fin al Result [facility] ([place]) 1 [facility] Department [place] [address] * (ABNORMAL) aPTT (07/14/2024 11:44 AM PRESIDENT AND CMO) aPTT 40(H) 28 - 38 sec [facility] ([place]) Comment: Interpretive Data Heparin therapeutic range: 66.0 - 100.0 seconds. Range based on correlation with therapeutic heparin activity range of 0.3 - 0.7 Units/mL. Current interpretive data was last revised on 2023. Blood 07/14/2024 11:4 4 AM PRESIDENT AND CMO 07/14/2024 11:48 AM PRESIDENT AND CMO Hadley Woodruff MD LAB BLOOD ORDERABLES F inal Result [facility] ([place]) 1 [facility] Department [place] [address] * Protime-INR (07/14/2024 11:44 AM PRESIDENT AND CMO) PT 10.6 9.7 - 13.0 sec [facility] ([place]) INR 0.98 0.90 - 1.20 [facility] ([place]) Comment: Interpretive data Oral anticoagulant therapeutic ranges: Venous thromboembolism prophylaxis or treatment: 2.0-3.0 CARDIOLOGY Standard range: 2.0-3.0 High-intensity range: 2.5-3.5 Refer to indication-specific guidelines for appropriate target ranges for prosthetic heart valve replacement. Current interpretive data was last revised on 2019. Blood 07/14/2024 11:4 4 AM PRESIDENT AND CMO 07/14/2024 11:48 AM PRESIDENT AND CMO Hadley Woodruff MD LAB BLOOD ORDERABLES F inal Result [facility] ([place]) 1 [facility] Department [place] [address] * Surgical pathology (07/14/2024 9:07 AM PRESIDENT AND CMO) Tissue (Bone Fragment(s),) 07/14/2024 3:45 PM PRESIDENT AND CMO Comment:Placed in formalin a t time of lab drop off Narrative PATHOLOGY [facility] ([place]) - 07/17/2024 3:52 PM PRESIDENT AND CMO EPIC results best viewed via link to PDF [facility] Department of Pathology [address] [place] [id number] Note to Patients: This report may contain [...] Patient Name: ??EUNICE DE LA CRUZ Address: ??[facility] [address], ??[place], [place] [address] Gender: ??F : ??1965 (Age: 59) Service: ??Surgery Location: ??[facility] Hospital #: ??[id number] Patient Type: ??[facility] EP OP in bed Accession # ?[id number] Taken: ??07/14/2024 Received: ??07/15/2024 Accessioned: ??07/15/2024 Reported: [...] determined by the Surgical Pathology Department at [facility] as part of an ongoing quality control tech raw materials program and in compliance with federally mandated [...] characteristics determined by the Surgical Pathology Department [facility]. ??It has not been cleared or approved by the U. S. Food and Drug Administration. Note for decalcified specimens: This assay has not been validated on decalcified tissues. Results should be interpreted with caution given the possibility of false negativity on decalcified specimens Suleiman Multani MD LAB PATHOLOGY ORDERABLES Fin al Result PATHOLOGY [facility] ([facility] [address] [place] [address] * POCT lipid panel (07/03/2024 10:34 AM PRESIDENT AND CMO) Cholesterol, POC 167 mg/dL Comment:GLU=94 HDL, POC 60 mg/dL Triglycerides, POC 102 mg/dL LDL Cholesterol POC 86 mg/dL Chol/HDL Ratio, POC 2.8 Non-HDL Cholesterol, POC 106 mg/dL Cholesterol Total, POC 167 mg/dL Capillary blood 07/03/2024 1 0:34 AM PRESIDENT AND CMO Yessi Martin NP POINT OF CARE TEST ORDERABL ES Final Result * ECG 12 lead (06/30/2024 12:33 PM PRESIDENT AND CMO) 06/30/2024 12:3 7 PM PRESIDENT AND CMO Narrative [facility] - 06/30/2024 1:05 PM PRESIDENT AND CMO Vent Rate: 61 bpm RR Interval: 973 msec TX Interval: 183 msec QRS Duration: 98 msec QT Interval: 450 msec QTC Interval: 453 msec P-R-T Champion: 71 - 30 - 58 degrees IMPRESSION: SINUS RHYTHM INCOMPLETE RIGHT BUNDLE BRANCH BLOCK ??[90+ ms QRS DURATION, TERMINAL R IN V1/V2, 40+ ms S IN I/aVL/V4/V5/V6] BORDERLINE ECG NO CHANGE FROM PREVIOUS TRACING NOTED Electronically Signed By: Dwain Camejo MD us Suleiman Multani MD ECG ORDERABLES Final Result [facility] * XR Chest Pa Lateral 2 Views (06/30/2024 12:25 PM PRESIDENT AND CMO) Anatomical Region Laterality Modality Body, Chest N/A Computed Radiogr aphy 07/02/2024 6:50 PM PRESIDENT AND CMO Narrative 07/02/2024 7:51 PM PRESIDENT AND CMO EXAM DESCRIPTION: XR CHEST PA LATERAL 2 [...] 07/02/2024 7:51 PM - Electronically signed by ??Ce Donohue M.D. LC: [id number] D: ??07/02/2024 7:51 PM T: ??07/02/2024 7:51 PM Report ID: [id number] Reading Location: ??[id number] Procedure Note Rach Donohue MD - 07/02/2024 [...] Ce Donohue M.D. LC: [id number] Report ID: [id number] Reading Location: [place] [address] us Suleiman uMltani MD IMG XR PROCEDURES Final Resu lt * Urinalysis reflex to microscopic and culture Urine, clean voided (06/30/2024 12:15 PM PRESIDENT AND CMO) Color, ur Straw Yellow Clarity, ur Clear Clear [facility] ([place]) Specific gravity, ur 1.008 1.003 - 1.030 [...] tendency for uric acid stone formation. Source: Acucar Guarani Current Interpretive Data was last revised on 2017 Protein, ur ql Negative Negative [facility] ([place]) Glucose, ur ql Negative Negative [facility] ([place]) Ketones, ur Negative Negative [facility] ([place]) Bilirubin, ur Negative Negative [facility] ([place]) Blood, ur Negative Negative [facility] ([place]) Urobilinogen, ur <2.0 <2.0 mg/dL [facility] ([place]) Nitrite, ur Negative Negative SHAY A ([place]) Leukocyte esterase, ur Negative Negative [facility] ([place]) UA reflex comment Reflex conditions for microscopic UA and culture not met. [facility] ([place]) Urine, clean voided 06/30/2024 12:15 PM PRESIDENT AND CMO 06/30/2024 12:20 PM PRESIDENT AND CMO us Suleiman Multani MD LAB MICROBIOLOGY - GENERAL O RDERABLES Final Result [facility] ([place]) 1 [facility] Department [place] [address] * eGFR (06/30/2024 12:14 PM PRESIDENT AND CMO) eGFR >90 >=60 mL/min/1. 73 m2 Comment: [...] reviewed 2021. Blood 06/30/2024 12:1 4 PM PRESIDENT AND CMO 06/30/2024 12:21 PM PRESIDENT AND CMO us Suleiman Multani MD LAB BLOOD ORDERABLES Final R esult [facility] ([place]) 1 [facility] Department [place] [address] * Differential, auto (06/30/2024 12:14 PM PRESIDENT AND CMO) Neutrophil abs 3.2 1.5 - 6.5 K/cumm [...] Neutrophil pct 63.9 % [facility] ([place]) Comment: Interpretive [...] on 2017. Blood 06/30/2024 12:1 4 PM PRESIDENT AND CMO 06/30/2024 12:21 PM PRESIDENT AND CMO us Suleiman Multani MD LAB BLOOD ORDERABLES Final R esult [facility] ([place]) 1 [facility] Department [place] [address] * CBC with auto differential (06/30/2024 12:14 PM PRESIDENT AND CMO) WBC 5.0 3.8 - 9.9 K/cumm Hgb 12.2 11.9 - 15.5 g/dL [facility] ([place]) Hct 37.1 35.6 - 45.5 % [facility] ([place]) Plt 220 150 - 400 K/cumm [facility] ([place]) MPV 9.9 9.1 - 12.3 fL [facility] ([place]) RBC 3.96 3.90 - 5.20 M/cumm [facility] ([place]) MCV 93.7 81.3 - 96.4 fL [facility] ([place]) MCH 30.8 27.1 - 33.3 pg [facility] ([place]) MCHC 32.9 32.3 - 35.7 g/dL [facility] ([place]) RDW CV 12.3 11.1 - 14.9 % [facility] ([place]) RDW SD 42.7 35.7 - 48.1 fL [facility] ([place]) NRBC abs 0.00 0.00 - 0.01 K/cumm [facility] ([place]) Blood 06/30/2024 12:1 4 PM PRESIDENT AND CMO 06/30/2024 12:21 PM PRESIDENT AND CMO Suleiman Multani MD LAB BLOOD ORDERABLES Final R esult Performing Organization Address [facility] de Phone Number SHAY ShahMAZAMA) 1 [facility] [place] [address] * (ABNORMAL) Hemoglobin A1c (06/30/2024 12:14 PM PRESIDENT AND CMO) Pathologist [facility] Hgb A1C 5.7(H) 4.0 - 5.6 % Estimated Average Glucose 117 mg/dL [facility] ([place]) Comment: The ADA recommends reporting an estimated Average Glucose (eAG) with all Hemoglobin A1c results using the equation derived from a study of 507 normal and diabetic adults. ??Minority populations were underrepresented and children were not included. ?? (Diabetes Care 31:9020-1900, 2008). ??The eAG is not equivalent to a fasting glucose. Blood 06/30/2024 12:1 4 PM PRESIDENT AND CMO 06/30/2024 12:21 PM PRESIDENT AND CMO Suleiman Multani MD LAB BLOOD ORDERABLES Final R esult Performing Organization Address City/[facility] Co de Phone Number SHAY [facility]BERTS ([place]) 1 [facility] [place] [address] * (ABNORMAL) Comprehensive metabolic panel (06/30/2024 12:14 PM PRESIDENT AND CMO) Pathologist [facility] Sodium 142 135 - 145 mmol/L Potassium, pl 3.8 3.3 - 4.9 mmol/L [facility] ([place]) Chloride 101 97 - 110 mmol/L [facility] ([place]) CO2 31 22 - 32 mmol/L [facility] ([place]) Anion gap 10 2 - 15 mmol/L [facility] ([place]) BUN 7 6 - 25 mg/dL [facility] ([place]) Creatinine 0.71 0.60 - 1.10 mg/dL [facility] ([place]) Glucose 103 70 - 199 mg/dL [facility] ([place]) Comment: Interpretive Data Fasting glucose >/= [...] classification and Diagnosis of Diabetes Diabetes Care 202; 46: S19-S40. Current interpretive data was last [...] S pecimen Blood 06/30/2024 12:1 4 PM PRESIDENT AND CMO 06/30/2024 12:21 PM PRESIDENT AND CMO us Suleiman Multani MD LAB BLOOD ORDERABLES Final R esult [facility]AY [facility] ([place]) 1 [facility] Department [place] [address] * Screening Mammogram Bilateral W Tomer (09/10/2023 [...] HPV, reflex to Genotyping (08/10/2021 11:40 AM PRESIDENT AND CMO) Thin prep (Pap test) 08/10/2021 11:40 AM PRESIDENT AND CMO 08/10/2021 11:40 AM PRESIDENT AND CMO Narrative PATHOLOGY - 08/15/2021 10:18 AM PRESIDENT AND CMO [facility] Department of Pathology [address] [place] [id number] Final Report with Addendum Note to Patients: [...] Patient Name: ??EUNICE DE LA CRUZ Address: ??[place] [address], ?? [place], [place] [address] Gender: ??F : ??1965 (Age: 56) Service: ??Laboratory Location: ??Lab Hospital #: ??[id number] Patient Type: ?? Ref Lab Taken: ??08/10/2021 Received: ??08/10/2021 Accessioned:: ??08/11/2021 Reported: ??08/15/2021 Physician(s): MD Antonietta Fields MD Diagnosis: Source of Specimen: ? SCREENING THIN PREP IMAGED PAP w/ HPV Specimen Adequacy: ?- Satisfactory for evaluation; endocervical/transformation zone component present General Category: ?- Negative for intraepithelial lesion or malignancy Interpretation/Results: ?- Numerous inflammatory cells present Verna Pérez CT(ASCP) Report Electronically Reviewed and Signed Out By ??Verna Pérez CT(ASCP) ??08/15/2021 10:18:14 ??Addenda: HPV Test Interpretation NEGATIVE for types 16, 18, 31, 33, 35, 39, 45, 51, 52, 56, 58, 59, 66 and 68. Test performed utilizing Gen-Probe Aptima assay. ?? Carol Love CT(ASCP) ??Report Electronically Reviewed and Signed Out By ??Carol Love CT(ASCP) ??08/14/2021 11:38:04 ? Specimen(s) Received: A: SCREENING [...] determined by the Surgical Pathology Department at [facility] as part of an ongoing quality control tech raw materials program and in compliance with federally mandated [...] characteristics determined by the Surgical Pathology Department [facility]. ??It has not been cleared or approved by the U. S. Food and Drug Administration. us Antonietta Arita MD LAB CYTOLOGY ORDERABL ES Final Result PATHOLOGY [address] [place] [address] * COLONOSCOPY (02/28/2018 10:35 AM CDT) Anatomical Region Laterality Modality Other Narrative Procedure Note Master Lorenzo MD - 02/28/2018 10:[address] [facility] Patient Name: Eunice De La Cruz Procedure Date: 02/28/2018 10:35 AM Date of : 1965 Admit Type: Outpatient Age: 53 Gender: Female Attending MD: Masetr Lorenzo M.D. Room: [facility] ENDOSCOPY ROOM 1 Note Status: Finalized Procedure: [...] passed under direct vision.The Pediatric Colonoscope PCF-[id number] was introduced through the anus and advanced [...] malignant neoplasm of colon CPT copyright 2017 [employer]. All rights reserved. The codes documented in this report are preliminary and upon warehouse forklift operator reviewmay be revised to meet current compliance requirements. Recognized by the [employer] for promoting quality in endoscopy Master Lorenzo MD ENDOSCOPY PROCEDURES Final Re sult from Last 3 Months or Most Recently Relevant to Health Maintenance Insurance [place]ESS [place] [facility] PL[facility] [place] [id number] [facility] PL[facility] Advance Directives For more information, please contact: [phone] Documents on File Type Date Recorded Patient Patient Care Technician Expl anation Advance Directives and Livin g Will 02/19/2022 5:20 AM * Full Code (Latest Code Status on File) Date Activated Date Inactivated Comments 07/14/2024 6:32 PM 07/15/2024 3:35 PM * Full Code Date Activated Date Inactivated Comments 02/19/2022 3:02 PM 02/22/2022 8:20 PM Care Teams Supervisor Functional Testing Relationship Specialty Start Date End Date Jason Garber MD [address] [place] [address] PCP - General 09/28/16 Nathalie Munroe, PT Physical Therapist Physical Therapy 11/09/21 Raffi Mahan MD [address] [facility] [address] Surgeon Orthopedic Surgery 02/20/22
== END 2024-07-28 15:04 | disposition home or self-care (01) ==
PROVIDERS: PCP Family Medicine; Visit Provider Physician Assistant
DX: M25.461 Effusion, right knee (principal); Z96.651 Presence of right artificial knee joint; I82.451 Acute embolism and thrombosis of right peroneal vein
CPT/HCPCS: 93971

== ENCOUNTER 2024-09-16 16:05 | Outpatient (RCR) | payer OTHER, SELFPAY ==
--- NOTE | 2024-09-16 17:12 | OPREHPOC ---
Outpatient Therapy Plan of Care This is a Multidisciplinary Plan of Care that may contain components documented by all disciplines (PT, OT, and ST.) PT Problem 1 PT Problem #1 Knowledge Deficit PT Goal 1 Goal / Goal Update Independent with HEP. Target Visit 2 PT Problem 2 PT Problem #2 Pain PT Goal 1 Goal / Goal Update Pt to report 0/10 pain at rest. Pt to report no more than 4/10 R hip pain with activity. Target Visit 10 PT Problem 3 PT Problem #3 Impaired Strength PT Goal 1 Goal / Goal Update Pt to improve gross hip strength to 5/5. Target Visit 10 PT Problem 4 PT Problem #4 Impaired Functional Mobility PT Goal 1 Goal / Goal Update Pt to report no more than 20% difficulty on LEFS questionnaire. Pt to be able to sit for more than 1 hour without R hip pain. Pt to be able to walk for more than 30 mins without R hip pain. Target Visit 10
--- NOTE | 2024-09-16 17:12 | PTOPEVAL1 ---
Assessment and note entered by Meera Granger, PT Evaluation Information Assessment Status Evaluation Diagnosis Greater trochanteric bursitis of R hip ICD-10 Condition Codes (PT) Pain in right hip M25.551 Other ICD-10 Condition Codes ( M70.61 PT) Onset 08/26/24 Subjective Information Flor reports onset of hip pain a few weeks ago when receiving PT following her R TKA. She has since been discharged from physical therapy for the R knee and is now coming back for the R hip. Her pain is aggravated by walking, prolonged sitting, going up/down stairs, getting out of a low chair, and laying on her R. She is only able to lie on her r side for about 10 minutes before needing to get off it. She did get a cortisone shot in the hip around 2 weeks ago and states the pain isn't as bad and she can walk better. She also reports she's been falling a lot recently, her most recent fall occurred today around an hour and a half ago . She reports at least 3 falls since her hip pain started and that she runs into things a lot. She does have some tingling in the legs as well as LBP from a previous back surgery. She isn't able to state if her falls have been from running into things or if her hip or knee gives out. In addition to the cortisone shot she has been taking tylenol for pain. Reported Pain Level Pain Score 6: Self Report Assessment PT Clinical Summary Mrs. Renee is a 59 yo female presenting to skilled physical therapy for R hip pain due to trochanteric bursitis. Her pain is aggravated by prolonged walking and sitting, getting out of low chairs, and performing stairs. She demonstrates generalized weakness of the R hip and pain with resisted movements. ABIGAIL, FADIR, and hip scouring are positive indicating R hip OA. She also demonstrates balance deficits with moderate sway noted in both narrow stance and tandem stance bilaterally. She will benefit from skilled PT intervention to improve on these deficits to be able to perform functional tasks with less pain and reduced fall risk. Plan of Care Interventions Electrical Stimulation,Gait Training,Hot Pack/Cold Pack,Manual Therapy,Neuro Re-education,Patient/ Caregiver Education,Therapeutic Activities, Therapeutic Exercise,Self-Care/Home Management PT Services Indicated Yes Treatment Frequency and 2x/week for 10 visits Duration These treatments will address the objective and functional deficits as defined above. The patient will be advanced safely and appropriately in order for the patient to progress towards his/her prior level of function. Additional exercises will be introduced and as well as a comprehensive home exercise program upon discharge, if needed, to ensure carryover of functional gains achieved in the clinic. This treatment plan has been reviewed and agreement upon by the patient.
--- NOTE | 2024-10-21 12:00 | OPREHPOC ---
Outpatient Therapy Plan of Care This is a Multidisciplinary Plan of Care that may contain components documented by all disciplines (PT, OT, and ST.) PT Problem 1 PT Problem #1 Knowledge Deficit PT Goal 1 Goal / Goal Update Independent with HEP. Target Visit 2 Progress Met PT Problem 2 PT Problem #2 Pain PT Goal 1 Goal / Goal Update Pt to report 0/10 pain at rest. Pt to report no more than 4/10 R hip pain with activity. Target Visit 10 Progress Not Met PT Problem 3 PT Problem #3 Impaired Strength PT Goal 1 Goal / Goal Update Pt to improve gross hip strength to 5/5. Target Visit 10 Progress Partially Met PT Problem 4 PT Problem #4 Impaired Functional Mobility PT Goal 1 Goal / Goal Update Pt to report no more than 20% difficulty on LEFS questionnaire. -not met Pt to be able to sit for more than 1 hour without R hip pain. -met Pt to be able to walk for more than 30 mins without R hip pain. -met Target Visit 10 Progress Partially Met
--- NOTE | 2024-10-21 12:00 | PTOPPROG ---
Assessment and note entered by Meera Granger, PT Evaluation Information Assessment Status Progress Diagnosis Greater trochanteric bursitis of R hip ICD-10 Condition Codes (PT) Pain in right hip M25.551 Other ICD-10 Condition Codes ( M70.61 PT) Onset 08/26/24 Subjective Information Flor reports her hip feels better overall but she still experiences pain when she's on her feet a lot. She's had days when her pain gets up to a 9/ 10 and her pain never gets down to a 0/10. She does feel like her lower extremity strength has improved since beginning therapy for her hip. She also notes an improvement in her balance but she still notes some instances of stumbling which she thinks is due to moving around too fast. Assessment PT Clinical Summary Mrs. Renee has attended 10 total skilled PT visits addressing trochanteric bursitis. Since beginning therapy she has made improvements in her strength and balance but still experiences hip pain with prolonged standing and walking. She sees her doctor on Saturday and will benefit from continued skilled PT intervention to continue making progress toward goals. Plan of Care Interventions Electrical Stimulation,Gait Training,Hot Pack/Cold Pack,Manual Therapy,Neuro Re-education,Patient/ Caregiver Education,Therapeutic Activities, Therapeutic Exercise,Self-Care/Home Management PT Services Indicated Yes Treatment Frequency and 2x/week for 4 visits Duration These treatments will address the objective and functional deficits as defined above. The patient will be advanced safely and appropriately in order for the patient to progress towards his/her prior level of function. Additional exercises will be introduced and as well as a comprehensive home exercise program upon discharge, if needed, to ensure carryover of functional gains achieved in the clinic. This treatment plan has been reviewed and agreement upon by the patient.
--- NOTE | 2024-11-12 09:12 | PTOPDC ---
Assessment and note entered by Meera Granger, PT Evaluation Information Assessment Status Discharge - Pt Not Present Diagnosis Greater trochanteric bursitis of R hip ICD-10 Condition Codes (PT) Pain in right hip M25.551 Other ICD-10 Condition Codes ( M70.61 PT) Onset 08/26/24 Subjective Information Flor reports her hip feels better overall but she still experiences pain when she's on her feet a lot. She's had days when her pain gets up to a 9/ 10 and her pain never gets down to a 0/10. She does feel like her lower extremity strength has improved since beginning therapy for her hip. She also notes an improvement in her balance but she still notes some instances of stumbling which she thinks is due to moving around too fast. Assessment PT Clinical Summary Pt is getting shoulder surgery on 11/19/24 and would like to be discharged skilled PT for her hip . Plan of Care PT Services Indicated Yes
== END 2024-10-21 20:00 | disposition home or self-care (01) ==
LOC: CHSPT 16:05
PROVIDERS: Visit Provider Physician Assistant
DX: M70.61 Trochanteric bursitis, right hip (principal)
CPT/HCPCS: 97110; 97112; 97140; 97161; 97530

== ENCOUNTER 2025-04-20 09:01 | Outpatient (RCR) | payer OTHER, SELFPAY ==
--- NOTE | 2025-04-20 14:10 | PTOPEVAL1 ---
Assessment and note entered by Katelynn Foster DPT Evaluation Information Assessment Status Evaluation Diagnosis L shoulder pain ICD-10 Condition Codes (PT) Pain in left shoulder M25.512 Onset Z98.890 Subjective Information Patient reports she underwent L RTC repair on 11/19. She reports that recently she has had more pain. She went to [facility] on 04/09 and they prescribed her a steroid and anti inflammatory. She reports since then it has felt a little better. She reports that in 2 weeks she returns to [facility] and if things are not better she will have an MRI. She reports that raising her arm over head is painful including dress, bathing and completing house hold tasks. She has been attended PT but has an new insurance. Reported Pain Level Pain Score 2: Self Report Assessment PT Clinical Summary Mrs. Renee is a 60 year old female who presents to PT with L shoulder pain following L RTC repair. She demonstrates decreased active and passive ROM and decreased L shoulder strength limiting her ability to dress, complete hygiene tasks and complete house hold chores. She would benefit from skilled PT to address impairments and return to PLOF. Plan of Care Interventions Electrical Stimulation,Hot Pack/Cold Pack,Manual Therapy,Neuro Re-education,Patient/Caregiver Education,Therapeutic Activities,Therapeutic Exercise PT Services Indicated Yes Treatment Frequency and 3x weekly for 12 visits Duration These treatments will address the objective and functional deficits as defined above. The patient will be advanced safely and appropriately in order for the patient to progress towards his/her prior level of function. Additional exercises will be introduced and as well as a comprehensive home exercise program upon discharge, if needed, ?to ensure carryover of functional gains achieved in the clinic. This treatment plan has been reviewed and agreement upon by the patient.
== END 2025-04-27 20:00 | disposition other institution (70) ==
LOC: CHSPT 09:01
PROVIDERS: Visit Provider Orthopaedic Surgery
DX: Z48.89 Encounter for other specified surgical aftercare (principal); Z98.890 Other specified postprocedural states
CPT/HCPCS: 97110; 97161